=== PATIENT | female | born 1965 | race Caucasian/White ===

== ENCOUNTER 2020-10-04 08:55 | Outpatient (CLI) | payer OTHER, SELFPAY ==
--- NOTE | 2020-10-04 09:01 | ECHO_ITS ---
Patient Info Name: Jes Begum Age: 54 years : 1965 Gender: Female Ht: 63 in Wt: 265 lbs BSA: 2.38 m2 BP: 162 / 98 mmHg Heart Rhythm: Sinus Rhythm Technical Quality: Good Exam Date: 10/04/2020 9:16 AM Exam Location: [facility] Patient Status: Outpatient Admit Date: 10/04/2020 Staff Ordering Physician: Prashant Carlin MD Sales Process Manager: Clyde Bardales RDCS Attending Provider: Prashant Carlin MD Referring Physician: Raegan HENNESSY; Exam Type: CA echo doppler color flow Study Info Indications R01.1 - Cardiac murmur, unspecified Complete two-dimensional, color flow and Doppler transthoracic echocardiogram is performed. Strain analysis performed. History/Risk Factors Murmur; HTN. Summary 1. Complete two-dimensional, color flow and Doppler transthoracic echocardiogram is performed. 2. Left ventricular chamber dimension is normal. 3. Left ventricular systolic function is normal, estimated at 60-65%. 4. There is mildly increased left ventricular wall thickness. 5. The left ventricular diastolic function is grade I diastolic dysfunction. 6. E/e' 13 is mildly elevated. 7. Global longitudinal strain is abnormal at -12.0%. Left Ventricle E/e' 13 is mildly elevated. Global longitudinal strain is abnormal at -12.0%. Left ventricular chamber dimension is normal. Left ventricular systolic function is normal, estimated at 60-65%. There is mildly increased left ventricular wall thickness. The left ventricular diastolic function is grade I diastolic dysfunction. Right Ventricle Right ventricular chamber dimension is normal. Right ventricular systolic function is normal. Left Atria Left atrial chamber dimension is normal. Right Atria Right atrial chamber dimension is normal. Aortic Valve The aortic valve is trileaflet. There is no aortic valve stenosis. There is no aortic valve regurgitation. Pulmonic Valve There is no pulmonic regurgitation. Mitral Valve There is no mitral valve stenosis. There is no mitral valve regurgitation. Tricuspid Valve There is no tricuspid valve regurgitation. Pericardium/Pleural There is no pericardial effusion. Inferior Vena Cava Normal inferior vena cava with >50% collapse upon inspiration consistent with normal right atrial pressure, 5 mmHg. Aorta The aortic root size at the sinus of Valsalva is normal. Left Ventricular Outflow Tract Name Value Normal LVOT 2D LVOT Diameter 2.0 cm LVOT Doppler LVOT Peak Gradient 5 mmHg LVOT Mean Gradient 3 mmHg LVOT VTI 24 cm LVOT VTI/AV VTI Ratio 0.9 LVOT Stroke Volume 77 ml LVOT CO 6.3 l/min LVOT CI 2.6 l/min/m2 Mitral Valve Name Value Normal MV Doppler
== END 2020-10-04 08:56 | disposition home or self-care (01) ==
PROVIDERS: PCP Internal Medicine; Visit Provider Internal Medicine
DX: R01.1 Cardiac murmur, unspecified (principal)
CPT/HCPCS: 93306

== ENCOUNTER 2020-10-05 01:33 | Outpatient (CLI) | payer OTHER, SELFPAY ==
[2020-10-05 19:22] LABS: SARS-CoV-2 RNA PCR Negative
== END 2020-10-05 01:34 | disposition home or self-care (01) ==
LOC: ANHCOVIDDT 01:34
PROVIDERS: PCP Internal Medicine; Visit Provider Internal Medicine Critical Care Medicine
DX: Z01.812 Encounter for preprocedural laboratory examination (principal); Z20.822 Contact with and (suspected) exposure to COVID-19
CPT/HCPCS: C9803; U0003; U0005

== ENCOUNTER 2020-10-07 09:14 | Outpatient (CLI) | payer OTHER, SELFPAY ==
--- NOTE | 2020-11-12 20:25 | WPDSLEEPSTUD ---
Sleep Study Date of Study: 10/07/20 Ordering Provider: Prashant Carlin MD Interpreting Physician: Dinah Gomez MD Sleep Study Type: Polysomnogram Height: 1.6 m Weight: 127.459 kg Body Mass Index: 49.7 Neck Circumference: 50.8 cm [place]: 12 Reason for Sleep Study Heavy snoring, waking at night with panic attacks, sleep apnea diagnosed 5 years ago on a home sleep test treated with nasal CPAP Sleep History Jes Begum is a 54-year-old woman who has a long history of disrupted sleep. She snores heavily which she describes is like a freight train. She described her sleep is being disrupted. In her late 30s she began having anxiety attacks which occurred while sleeping. She Says that she often wakes up around 2 or 3 in the morning. During the day she can fall asleep while sitting upright and watching TV. She generally takes naps in the middle of the day. She had a home sleep test 5 years ago, was diagnosed with sleep apnea and used a CPAP with a nasal mask but did not use it consistently because she was having anxiety attacks at night. She has moved her recliner into her bedroom. She does not awaken at night with heartburn, belching or coughing. She occasionally awakens from sleep feeling short of breath. She rarely has trouble sleeping with a cold. She occasionally wakes up gasping for breath at night. She occasionally has breathing problems at night observed by others. She denies sweating excessively at night. She does not notice her heart pounding or beating irregularly at night. She occasionally falls asleep during the day, occasionally involuntarily however never while driving. She does not fall asleep while exerting physical effort. She does not have loss of muscle tone with strong emotion. She occasionally has difficulties in the daytime due to excessive sleepiness, works as a computer installation engineer. she rarely feels paralyzed on waking or falling asleep. She never has vivid dreamlike scenes upon awakening or falling asleep. She occasionally feels afraid to go to sleep. She rarely has nightmares. She occasionally remembers her dreams. She occasionally has racing thoughts and occasionally has feelings of sadness and depression. She constantly feels anxious. She never has muscular tension and does not notice parts of her body jerking. She rarely kicks at night. She does not have crawling and aching feelings in her legs at night. She occasionally has leg pain at night. She does not have morning jaw pain. She never grinds her teeth during sleep. She rarely is bothered by pain during the day, rarely is awakened by pain at night. She frequently wakes up feeling stiff in the morning with sore achy muscles. She occasionally wakes up with pain in the neck and spine. She has feelings of panic, she has memory problems, depression and headaches. She feels unable to relax. Normal bedtime is 10:00 p.m. taking 1 hour to fall asleep. She typically wakes up 3 times during the night To urinate. She stays awake for 15-20 minutes. She wakes in the morning at 4:00 a.m.. On weekends she goes to bed later, 11:00 p.m. and wakes at 4 in the morning. After waking she usually stays in bed for 2 or 3 hours and usually falls asleep again. She estimates getting between 6 hours and 10 hours of sleep at night. She takes naps in the afternoon or evening. A short nap 10 or 15 minutes may be refreshing. She feels better in the morning compared to other times of day. Habits: tobacco 1 cigarette per day. Caffeine 1 L of diet soda daily. No alcohol or recreational drugs. [facility] Past Medical History Medical History Anxiety with depression Asthma Benign essential hypertension BMI 50.0-59.9, adult Body mass index (BMI) 45.0-49.9, adult Diastolic dysfunction DM type 2 (diabetes mellitus, type 2) Encounter to establish care FHx: colon cancer Follow up GERD (gastroesophageal reflux disease) Heart mu
[2020-11-12 21:36] VITALS: BMI 49.7
== END 2020-10-07 09:15 | disposition home or self-care (01) ==
LOC: ANHCSM 09:16
PROVIDERS: PCP Internal Medicine; Visit Provider Internal Medicine
DX: G47.33 Obstructive sleep apnea (adult) (pediatric) (principal); Z99.89 Dependence on other enabling machines and devices
CPT/HCPCS: 95810

== ENCOUNTER → 2020-12-07 00:40 | Outpatient (CLI) | payer OTHER, SELFPAY ==
[2020-12-07 18:32] LABS: SARS-CoV-2 RNA PCR Negative
== END ==
PROVIDERS: PCP Internal Medicine; Visit Provider Internal Medicine Critical Care Medicine
DX: Z01.812 Encounter for preprocedural laboratory examination (principal); Z20.822 Contact with and (suspected) exposure to COVID-19
CPT/HCPCS: C9803; U0003; U0005

== ENCOUNTER 2020-12-09 09:37 | Outpatient (CLI) | payer OTHER, SELFPAY ==
--- NOTE | 2020-12-21 09:55 | WPDSLEEPSTUD ---
Sleep Study Ordering Provider: Prashant Carlin MD Interpreting Physician: Romel Azevedo MD Sleep Study Type: CPAP Titration Height: 1.6 m Weight: 127.006 kg Body Mass Index: 49.6 Neck Circumference (inches): 17 [place]: 10 Reason for Sleep Study Patient had polysomnographic study done few months ago that documented presence of severe obstructive sleep apnea. Given patient's daytime symptomatology patient was recommended to undergo positive airway pressure titration study. Sleep History history of snoring, poor quality of sleep, daytime sleepiness and comorbid conditions including morbid obesity and type 2 diabetes. [facility] Past Medical History Medical History (Updated 12/10/20 @ 10:37 by Helen Chapman CMA) Abnormal ankle brachial index (JEANNINE) Anxiety with depression Asthma Benign essential hypertension BMI 50.0-59.9, adult Body mass index (BMI) 45.0-49.9, adult Diabetes mellitus type 2, insulin dependent Diastolic dysfunction Encounter for preventive health examination Encounter to establish care FHx: colon cancer Follow up GERD (gastroesophageal reflux disease) Heart murmur Hyperlipidemia Hypersomnolence On fpc drug therapy JO on CPAP Reactive airway disease Tobacco abuse Vitamin D deficiency Surgical History Surgical History Hx of hernia repair Hx of hysterectomy Family History Family History Mother Alzheimer's disease Father Heart disease Diabetes mellitus Grandparent No problems noted. Social History Social History Smoking status: Current every day smoker Tobacco type: cigarettes Second hand tobacco smoke exposure: Yes Additional smoking assessment comments: 3-5 cigarettes daily Alcohol intake: former Substance use: never Medications Home Medications Medication Instructions Recorded Confirmed Type estradiol 1 mg tablet 1 mg PO DAILY 08/23/20 12/14/20 History pen needle, diabetic 32 gauge x #50 ea 10/22/20 12/14/20 Rx 1/4 rosuvastatin 40 mg tablet 40 mg PO DAILY #90 tablet 10/22/20 12/14/20 Rx semaglutide 0.5 mg SUBCUT WEEKLY #1.5 ml 10/22/20 12/14/20 Rx flash glucose scanning reader #1 ea 11/19/20 12/14/20 Rx Vascepa 1 gram capsule 2 g PO BID 90 Days #360 cap NS 12/09/20 12/14/20 Rx albuterol sulfate 90 mcg/actuation 1 puff INHALATION Q4H PRN #6.7 g 12/09/20 12/14/20 Rx aerosol inhaler buspirone 30 mg tablet 30 mg PO TID 90 Days #270 tablet 12/09/20 12/14/20 Rx carvedilol 25 mg tablet 25 mg PO Q12H #180 tablet 12/09/20 12/14/20 Rx fluticasone 500 mcg-salmeterol 50 1 inh INHALATION Q12H #60 ea 12/09/20 12/14/20 Rx mcg/dose blistr powdr for inhalation insulin lispro 200 unit/mL (3 mL) 22 unit SUBCUT .Q meal #6 ml 12/09/20 12/14/20 Rx subcutaneous pen lisinopril 40 mg tablet 40 mg PO DAILY #90 tablet 12/09/20 12/14/20 Rx metformin 1,000 mg tablet 1,000 mg PO BID #180 tablet 12/09/20 12/14/20 Rx pantoprazole 40 mg tablet,delayed 40 mg PO QAM #90 tablet 12/09/20 12/14/20 Rx release zolpidem 10 mg tablet 10 mg PO QHS PRN #1 tablet 12/09/20 12/14/20 Rx insulin glargine 100 unit/mL (3 30 unit SUBCUT BID #15 ml 12/13/20 12/14/20 Rx mL) subcutaneous pen alprazolam 0.25 mg tablet 0.25 mg PO TID PRN #90 tablet 12/17/20 Rx Sleep Procedure Patient underwent overnight polysomnography and the entire study was devoted to positive airway pressure titration. The patient used air fit F 30 fullface mask of medium size. Sleep Architecture total recording time 463 minutes, total sleep time 259 minutes, sleep efficiency 56.1%. Sleep latency 19 minutes, REM latency 76 minutes. Awake after sleep onset 184 minutes, stage N1 10%, N2 84%, N3 0%, stage R 6%. Supine sleep 66.5%, supine REM sleep 2.9%. Respiratory Analysis AASM criteria used. During titration patient had 2 apneas
[2020-12-21 10:19] VITALS: BMI 49.6
== END 2020-12-09 09:38 | disposition home or self-care (01) ==
LOC: ANHCSM 09:37
PROVIDERS: PCP Internal Medicine; Visit Provider Internal Medicine
DX: G47.33 Obstructive sleep apnea (adult) (pediatric) (principal)
CPT/HCPCS: 95811

== ENCOUNTER 2020-12-22 12:27 | Outpatient (CLI) | payer OTHER, SELFPAY ==
--- NOTE | ~2020-12-22 | MM_ITS ---
EXAMINATION: MM screening wade BI w richard HISTORY: Screening mammogram TECHNIQUE: Craniocaudal and mediolateral oblique 3-D tomosynthesis images were obtained and synthetic 2-D images were generated. CAD analysis was submitted and interpreted. COMPARISON: No prior mammogram is available for comparison at this institution. BREAST PARENCHYMAL COMPOSITION: There are scattered areas of fibroglandular density. FINDINGS: RIGHT BREAST: There is no evidence of suspicious mass, calcification, or architectural distortion to suggest malignancy. LEFT BREAST: An asymmetry is present in the posterior third of the slightly outer breast 6 cm from th e nipple on the craniocaudal view. IMPRESSION: 1. Left breast asymmetry which may represent the patient's baseline however no comparison is currentl y available. 2. Comparison with prior mammograms is necessary. BI-RADS Category 0: Incomplete: Needs comparison with prior mammograms. Reviewed, dictated and finalized at location A. IMPRESSION: 1. Left breast asymmetry which may represent the patient's baseline however no comparison is currently available. 2. Comparison with prior mammograms is necessary. BI-RADS Category 0: Incomplete: Needs comparison with prior mammograms.
== END 2020-12-22 12:28 | disposition home or self-care (01) ==
LOC: ANHIMG 12:34
PROVIDERS: PCP Internal Medicine
DX: Z12.31 Encounter for screening mammogram for malignant neoplasm of breast (principal); R92.8 Other abnormal and inconclusive findings on diagnostic imaging of breast
CPT/HCPCS: 77063; 77067

== ENCOUNTER → 2021-02-07 01:12 | Outpatient (CLI) | payer OTHER, SELFPAY ==
[2021-02-07 18:48] LABS: SARS-CoV-2 RNA PCR Negative
== END ==
PROVIDERS: PCP Internal Medicine; Visit Provider Internal Medicine Critical Care Medicine
DX: Z01.812 Encounter for preprocedural laboratory examination (principal); Z20.822 Contact with and (suspected) exposure to COVID-19
CPT/HCPCS: C9803; U0003; U0005

== ENCOUNTER 2021-02-09 08:08 | Outpatient (CLI) | payer OTHER, SELFPAY ==
--- NOTE | 2021-02-25 10:57 | WPDSLEEPSTUD ---
Sleep Study Date of Study: 02/09/21 Ordering Provider: Prashant Carlin MD Interpreting Physician: Dinah Gomez MD Sleep Study Type: BiPAP Titration Height: 1.6 m Weight: 127 kg Body Mass Index: 49.6 Neck Circumference (inches): 17 [place]: 14 Reason for Sleep Study * Oct 07, 2020; Basic sleep study; severe JO AHI 44.9, supine AHI 138.4, lowest saturation 71% * December 09, 2020; CPAP titration with pressures 7 cm to 15 cm attempted; failed CPAP; panic attack at 13 cm and the pressure was decreased to 9 cm, at 13 cm the patient had an AHI of 57 and then when this was increased to 15 cm she could not sleep. She returns for a repeat titration Sleep History Jes Begum is a 55 year old female with a long history of disrupted sleep. She snores heavily which she describes is like a freight train. She describes her sleep as being disrupted. In her late 30s she began having anxiety attacks which occurred while sleeping. She says that she often wakes up around 2 or 3 in the morning. During the day she can fall asleep while sitting upright and watching TV. She generally takes naps in the middle of the day. She had a home sleep test 5 years ago, was diagnosed with sleep apnea and used a CPAP with a nasal mask but did not use it consistently because she was having anxiety attacks at night. She has moved her recliner into her bedroom. She does not awaken at night with heartburn, belching or coughing. She occasionally awakens from sleep feeling short of breath. She rarely has trouble sleeping with a cold. She occasionally wakes up gasping for breath at night. She occasionally has breathing problems at night observed by others. She denies sweating excessively at night. She does not notice her heart pounding or beating irregularly at night. She occasionally falls asleep during the day, occasionally involuntarily however never while driving. She does not fall asleep while exerting physical effort. She does not have loss of muscle tone with strong emotion. She occasionally has difficulties in the daytime due to excessive sleepiness, works as a high school computer science teacher. She rarely feels paralyzed on waking or falling asleep. She never has vivid dreamlike scenes upon awakening or falling asleep. She occasionally feels afraid to go to sleep. She rarely has nightmares. She occasionally remembers her dreams. She occasionally has racing thoughts and occasionally has feelings of sadness and depression. She constantly feels anxious. She never has muscular tension and does not notice parts of her body jerking. She rarely kicks at night. She does not have crawling and aching feelings in her legs at night. She occasionally has leg pain at night. She does not have morning jaw pain. She never grinds her teeth during sleep. She rarely is bothered by pain during the day, rarely is awakened by pain at night. She frequently wakes up feeling stiff in the morning with sore achy muscles. She occasionally wakes up with pain in the neck and spine. She has feelings of panic, she has memory problems, depression and headaches. She feels unable to relax. Normal bedtime is 10:00 p.m. taking 1 hour to fall asleep. She typically wakes up 3 times during the night To urinate. She stays awake for 15-20 minutes. She wakes in the morning at 4:00 a.m.. On weekends she goes to bed later, 11:00 p.m. and wakes at 4 in the morning. After waking she usually stays in bed for 2 or 3 hours and usually falls asleep again. She estimates getting between 6 hours and 10 hours of sleep at night. She takes naps in the afternoon or evening. A short nap 10 or 15 minutes may be refreshing. She feels better in the morning compared to other times of day. Habits: tobacco 1 cigarette per day. Caffeine 1 L of diet soda daily. No alcohol or recreational drugs. [facility] Past Medical History Medical History (Updated 02/25/21 @ 11:46 by Dinah Gomez MD) Abnormal ankle brachial index (JEANNINE)
[2021-02-25 11:13] VITALS: BMI 49.6
== END 2021-02-10 05:53 | disposition home or self-care (01) ==
LOC: ANHCSM 08:08
PROVIDERS: PCP Internal Medicine; Visit Provider Internal Medicine
DX: G47.33 Obstructive sleep apnea (adult) (pediatric) (principal); G25.81 Restless legs syndrome
CPT/HCPCS: 95811

== ENCOUNTER 2021-02-18 14:02 | Outpatient (CLI) | payer OTHER, SELFPAY ==
--- NOTE | ~2021-02-18 | MM_ITS ---
EXAMINATION: MM diagnostic mammo unilat LT HISTORY: Left breast mammographic asymmetry reported on 12/22/2020 screening mammogram TECHNIQUE: Digital ML and cc and spot CC views. CAD analysis was submitted and interpreted. COMPARISON: 12/22/2020 bilateral digital screening mammogram FINDINGS: The focal asymmetry noted in the mid to posterior inner aspect of the outer left breast on craniocaudal view is not confirmed on these supplemental views, compatible with composite shadowing o f overlapping fibroglandular stroma. IMPRESSION: 1. No mammographic evidence malignancy 2. Routine mammographic screening is recommended. BI-RADS Category 1: Negative Reviewed, dictated and finalized at location A.
== END 2021-02-18 14:03 | disposition home or self-care (01) ==
LOC: ANHIMG 14:04
PROVIDERS: PCP Internal Medicine
DX: R92.8 Other abnormal and inconclusive findings on diagnostic imaging of breast (principal)
CPT/HCPCS: 77065

== ENCOUNTER 2021-03-17 09:19 | Outpatient (CLI) | payer OTHER, SELFPAY ==
--- NOTE | ~2021-03-17 | US_ITS ---
EXAMINATION: US art doppler w press LE BI DATE: 03/17/2021 10:59 INDICATION: Bilateral lower leg pain charley horses . TECHNIQUE: Segmental pressures and plethysmographic and Doppler waveforms of the brachial and lower e xtremity arteries were obtained. COMPARISON: None. FINDINGS: Right and left brachial artery pressures of 214 mm Hg and 204 mm Hg, respectively, are concordant (no rmal difference <= 30 mmHg). The right and left high-thigh pressure indices were unable to be obtaine d due to body habitus. The arteries throughout the right lower limb at and above the ankle were unable to be obtained due to inability to occlude the vessels precluding assessment for ankle-brachial index and segmental pressu re gradients. The right great toe-brachial index (TBI) is 0.92 (normal >= 0.6-0.8). Arterial waveform s are biphasic at the right superficial femoral artery and triphasic and remaining arteries of the ri ght lower limb with brisk systolic upstrokes throughout. The arteries throughout the left lower limb at and above the ankle were unable to be obtained due to inability to occlude the vessels precluding assessment for ankle-brachial index and segmental pressur e gradients. The left TBI is 0.86. Arterial waveforms are triphasic with brisk systolic upstrokes thr oughout. IMPRESSION: 1. Normal TBI's bilaterally. No significant occlusive disease. Reviewed, dictated and finalized at location A.
== END 2021-03-17 09:20 | disposition home or self-care (01) ==
PROVIDERS: PCP Internal Medicine; Visit Provider Internal Medicine
DX: R68.89 Other general symptoms and signs (principal)
CPT/HCPCS: 93923

== ENCOUNTER 2022-08-03 14:52 | Outpatient (CLI) | payer OTHER, SELFPAY ==
--- NOTE | ~2022-08-03 | DEXA_ITS ---
Bone Density Report Name: ESRGEI QUAN Age: 56 Sex: Female Ethnicity: White Date of : 1965 Indication: postmenopausal; screening for osteoporosis; height loss; asthma or emphysema; hysterectomy; Referring Provider: BAUDILIO, MARISSA Study: Bone densitometry was performed. Exam Date: August 03, 2022 Accession number: [id number] Bone Density: Region BMD T-score Z-score Classification AP Spine(L1-L4) 1.298 2.3 3.5 Normal Femoral Neck (Left) 0.878 0.3 1.4 Normal Total Hip (Left) 1.077 1.1 1.9 Normal Femoral Neck (Right) 0.864 0.1 1.3 Normal Total Hip (Right) 1.132 1.6 2.4 Normal Total Hip Mean 1.105 1.4 2.2 Normal World Health Organization criteria for BMD impression classify patients as: Normal (T-score at or above -1.0), Osteopenia (T-score between -1.0 and -2.5), or Osteoporosis (T-score at or below -2.5). 10-year Fracture Risk: FRAX not reported because: All T-scores for Spine Total, Hip Total, Femoral Neck at or above -1.0 Clinical Information Provided by Patient: Smokes Has used the following medications: Vitamin D Has the following medical conditions: Asthma or Emphysema, Hysterectomy Patient maximum height was 63 Menopause Age: 44 No regular weight bearing exercise Drinks caffeinated beverages Onset of menses at age 12 Number of children 1 Impression: The patient has normal bone mass. The patient has risk factors, including: smoking. Discussion: BONE DENSITY IS ABOVE THE MINIMUM DESIRABLE LEVEL AT ALL SKELETAL SITES TESTED. This patient?s bone mineral density is above the minimum desirable level (T-score -1.0 or better) at all sites measured. The patient should follow a healthful lifestyle (good nutrition with adequate calcium and vitamin D, and appropriate weight-bearing exercise). Follow-Up: Consider repeating this study in 5 years or sooner if there is some new clinical indication. Reported by: MARTÍN on 08/03/2022 3:32:00 PM. Reviewed, dictated and finalized at location ABarb [place]
--- NOTE | ~2022-08-03 | MM_ITS ---
EXAMINATION: MM screening wade BI w richard HISTORY: Screening mammogram TECHNIQUE: Craniocaudal and mediolateral oblique 3-D tomosynthesis images were obtained and synthetic 2-D images were generated. CAD analysis was submitted and interpreted. COMPARISON: 02/18/2021 diagnostic left mammogram 12/22/2020, 05/08/2019, 02/22/2018, 01/26/2017 bilateral screening mammogram examinations BREAST PARENCHYMAL COMPOSITION: There are scattered areas of fibroglandular density. FINDINGS: There is no evidence of suspicious mass, calcification, or architectural distortion to sugg est malignancy in either breast. There has been no suspicious interval change. IMPRESSION: 1. No mammographic evidence of malignancy. 2. Recommend routine screening mammography in one year. BI-RADS Category 1: Negative Reviewed, dictated and finalized at location A. ERY OFFICE MANAGER
== END 2022-08-03 14:53 | disposition home or self-care (01) ==
PROVIDERS: PCP Internal Medicine; Visit Provider Obstetrics & Gynecology Gynecology
DX: Z12.31 Encounter for screening mammogram for malignant neoplasm of breast (principal); Z78.0 Asymptomatic menopausal state; Z13.820 Encounter for screening for osteoporosis
CPT/HCPCS: 77063; 77067; 77080

== ENCOUNTER 2023-06-13 15:40 | Outpatient (CLI) | payer BC, SELFPAY ==
--- NOTE | ~2023-06-13 | US_ITS ---
EXAMINATION: US renal BI DATE: 06/13/2023 16:32 INDICATION: Elevated creatinine TECHNIQUE: Multiple grayscale and Doppler ultrasound images of the kidneys were obtained. COMPARISON: None. FINDINGS: The right kidney measures 12.3 x 5.5 x 6.0 cm. The left kidney measures 11.0 x 6.3 x 5.6 cm . The kidneys demonstrate normal parenchymal echogenicity. There is no hydronephrosis. The bladder is normal. IMPRESSION: 1. Normal kidneys without hydronephrosis. Reviewed, dictated and finalized at location D.
== END 2023-06-13 15:41 | disposition home or self-care (01) ==
PROVIDERS: PCP Internal Medicine; Visit Provider Internal Medicine
DX: R79.89 Other specified abnormal findings of blood chemistry (principal)
CPT/HCPCS: 76775

== ENCOUNTER 2023-08-14 15:05 | Outpatient (CLI) | payer BC, SELFPAY ==
--- NOTE | ~2023-08-14 | MM_ITS ---
EXAMINATION: MM screening wade BI w richard HISTORY: Screening mammogram TECHNIQUE: Craniocaudal and mediolateral oblique 3-D tomosynthesis images were obtained and synthetic 2-D images were generated. CAD analysis was submitted and interpreted. COMPARISON: 08/03/2022 bilateral screening mammogram 02/18/2021 diagnostic left mammogram, reported negative 12/22/2020 bilateral screening mammogram BREAST PARENCHYMAL COMPOSITION: There are scattered areas of fibroglandular density. FINDINGS: There is no evidence of suspicious mass, calcification, or architectural distortion to sugg est malignancy in either breast. There has been no suspicious interval change. IMPRESSION: 1. No mammographic evidence of malignancy. 2. Recommend routine screening mammography in one year. BI-RADS Category 1: Negative Reviewed, dictated and finalized at location A. ING INSPECTOR
== END 2023-08-14 15:06 | disposition home or self-care (01) ==
PROVIDERS: PCP Internal Medicine; Visit Provider Advanced Practice Midwife
DX: Z12.31 Encounter for screening mammogram for malignant neoplasm of breast (principal)
CPT/HCPCS: 77063; 77067

== ENCOUNTER 2024-07-25 10:48 | Outpatient (CLI) | payer BC, SELFPAY ==
--- NOTE | ~2024-07-25 | US_ITS ---
Renal-Bladder ultrasound Clinical History: Abnormal blood, she findings Technique: Real-time sonographic imaging of the kidneys and urinary bladder was performed. Findings: The right kidney measures 11.4 cm in length and the left kidney measures 10.6 cm. There is no hydronephrosis or renal calculus identified. Renal cortical echogenicity is within normal limits. No renal mass lesion is identified. The urinary bladder is moderately distended at the time of this exam. No intraluminal echoes are iden tified. No abnormal wall thickening is seen. Impression: Unremarkable ultrasound of the kidneys and urinary bladder. Reviewed, dictated and finalized at location M. Impression: Unremarkable ultrasound of the kidneys and urinary bladder.
== END 2024-07-25 10:49 | disposition home or self-care (01) ==
LOC: MICIMG 10:48
PROVIDERS: PCP Internal Medicine; Visit Provider Internal Medicine
DX: R79.89 Other specified abnormal findings of blood chemistry (principal); Z79.899 Other long term (current) drug therapy
CPT/HCPCS: 76775

== ENCOUNTER 2024-11-10 12:23 | Outpatient (CLI) | payer BC, SELFPAY ==
--- NOTE | ~2024-11-10 | MMUS_ITS ---
EXAMINATION: MM diagnostic wade RT w richard, US breast RT limited HISTORY: Follow-up right breast mass TECHNIQUE: Additional 3-D tomosynthesis images of the right breast were performed and synthetic 2-D i mages were generated. CAD analysis was submitted and interpreted. High resolution Limited right breas t ultrasound was performed. COMPARISON: Comparison to multiple prior studies sequentially, with oldest reviewed study dated 05/08. BREAST PARENCHYMAL COMPOSITION: Not dense: There are scattered areas of fibroglandular density. FINDINGS: MAMMOGRAPHIC FINDINGS: There is a small radiolucent mass in the upper outer quadrant of the right breast, anterior third. Th ere are no suspicious calcifications or architectural distortion. ULTRASOUND: Limited right breast ultrasound: At 1:00, 1 cm from the nipple there is a small cluster of microcysts . In the subareolar location the right breast there is a 5 mm cyst. No suspicious masses to suggest m alignancy. IMPRESSION: 1. No evidence for malignancy in the right breast. Benign findings. 2. Routine yearly screening mammogram and regular clinical breast examination are recommended. BI-RADS Category 2: Benign finding(s). Reviewed, dictated and finalized at location B. [facility] IMPRESSION: 1. No evidence for malignancy in the right breast. Benign findings. 2. Routine yearly screening mammogram and regular clinical breast examination a re recommended. BI-RADS Category 2: Benign finding(s).
--- OUTSIDE RECORDS SUMMARY | 2024-11-10 14:48 | XMS_ITS | Encounter Summary ---
Author Organization [employer] Address [address] [place] [address] Care Team Providers Care Art Therapy Certified Supervisor Name Role Phone Garth Graham MD Primary Care Provider +1- [phone] Encounter Details Date Type Department Care Team (Latest Contact Info) Description 06/05/2008 Outpatient Historical [facility] SenRhianna ramsay MD [address] [place] [phone] Other Abnormal Clinical Finding Social History Tobacco Use Types Packs/Day Years Used Date Smoking Tobacco: Never Assessed Comments No Sex and Gender Information Value Date Recorded Sex Assigned at Not on file 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
--- OUTSIDE RECORDS SUMMARY | 2024-11-10 14:48 | XMS_ITS | Encounter Summary ---
Author Organization [facility] Address [address] [place] [address] Care Team Providers Care Sheet Metal Journeyman Name Role Phone Garth Graham MD Primary Care Provider [phone] Reason for Visit * Reason Comments Medication Refill Encounter Details Date Type Department Care Team (Late st Contact Info) Description 01/20/2019 Refill [facility] Internal Medicine - [address] [address] [place] [address] [facility] [address] [place] [address] Social History Tobacco Use Types Packs/Day Years Used Date Smoking Tobacco: Every Day Cigarettes 0.5 25 Smokeless Tobacco: Never Alcohol Use Standard Drinks/Week Comments No 0 (1 standard drink = 0.6 oz pur e alcohol) Comments No Sex and Gender Information Value Date Recorded Sex Assigned at Not on file Legal Sex Female 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
--- OUTSIDE RECORDS SUMMARY | 2024-11-10 14:48 | XMS_ITS | Encounter Summary ---
Author Organization [facility] Address [address] [place] [address] Care Team Providers Care Planning Consultant Name Role Phone Garth Graham MD Primary Care Provider [phone]- [phone] Encounter Details Date Type Department Care Team (Late st Contact Info) Description 01/21/2007 Outpatient Historical [facility] and [address] [place] [address] Rhianna Groves MD [address] [facility] [address] [place] [address] Social History Tobacco Use Types Packs/Day Years Used Date Smoking Tobacco: Never Assessed Comments Unknown Sex and Gender Information Value Date Recorded Sex Assigned at Not on file Legal Sex Female 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
--- OUTSIDE RECORDS SUMMARY | 2024-11-10 14:48 | XMS_ITS | Encounter Summary ---
Author Organization [employer] [facility] Address [address] [place] [address] Care Team Providers Care Conduit Reamer Operator Name Role Phone Garth Graham MD Primary Care Provider [phone]- [phone] Encounter Details Date Type Department Care Team (Late st Contact Info) Description 04/21/2008 Outpatient Historical [facility] Rhianna Garcia MD [address] [facility] [address] [place] [address] Other Screening Mammogram Social History Tobacco Use Types Packs/Day Years Used Date Smoking Tobacco: Never Assessed Comments No Sex and Gender Information Value Date Recorded Sex Assigned at Not on file Legal Sex Female 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 [place], [place] [address] Admit Date: 04/21/2008 JES BEGUM Sex: F Admit Prov: RHIANNA GARCIA Date: 1965 Primary Care Prov: RHIANNA GARCIA CMRN: [id number] Room: [facility]: [id number] IMAGING SERVICES Ordering Prov: RHIANNA GARCIA Accession Number: [id number] Interpretation BILATERAL SCREENING MAMMOGRAMS, 04/21/2008 Reason For Examination: Screening study. Findings: The parenchyma is moderately dense bilaterally. There is no mass, malignant calcification, lymphadenopathy or other sign of malignancy. Summary: No mammographic evidence of malignancy. Assessment BIRADS: 1-Negative Recommendation: Normal interval follow-up Dictated by: KALEN TELLO Electronically signed by: KALEN TELLO 04/22/2008 17:17 Transcribed: 04/22/2008 16:51 DKT Procedure Note Kalen Tello MD - 04/22/[address] [address] Admit Date: 04/21/2008 JES BEGUM Sex: F Admit Prov: RHIANNA GARCIA Date: 1965 Primary Care Prov: RHIANNA GARCIA CMRN: [id number] [id number] [facility] Ordering Prov: RHIANNA GARCIA Interpretation BILATERAL SCREENING MAMMOGRAMS, 04/21/2008 Reason For Examination: Screening study. Findings: The parenchyma is moderately dense bilaterally. There is nomass, malignant calcification, lymphadenopathy or other sign ofmalignancy. Summary: No mammographic evidence of malignancy. Assessment BIRADS: 1-Negative Recommendation: Normal interval follow-up Dictated by: KALEN TELLO Electronically signed by: KALEN TELLO 04/22/2008 17:17 Transcribed: 04/22/2008 16:51 DKT Rhianna Garcia MD MAMMO ORDERABLES Final Result documented in this encounter Visit Diagnoses Diagnosis Other screening mammogram documented in this encounter Care Teams Conduit Reamer Operator Relationship Specialty Start Date End Date Garth Graham MD PCP - General 11/17/09 08/15/20 documented as of this encounter
--- OUTSIDE RECORDS SUMMARY | 2024-11-10 14:48 | XMS_ITS | Encounter Summary ---
Author Organization [facility] Address [address] [place] [address] Care Team Providers Care Health Education Teacher Name Role Phone Garth Graham MD Primary Care Provider [phone]- [phone] Encounter Details Date Type Department Care Team (Late st Contact Info) Description 10/11/2004 Outpatient Historical [facility] [address] [place] [address] Krista Magana MD [address] [facility] [address] [place], [place] [id number] Social History Tobacco Use Types Packs/Day Years Used Date Smoking Tobacco: Never Assessed Comments Unknown Sex and Gender Information Value Date Recorded Sex Assigned at Not on file Legal Sex Female 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
--- OUTSIDE RECORDS SUMMARY | 2024-11-10 14:48 | XMS_ITS | Encounter Summary ---
Author Organization [facility] Address [address] [place] [address] Care Team Providers Care Bail Bond Agent Name Role Phone Garth Graham MD Primary Care Provider [phone]- [phone] Encounter Details Date Type Department Care Team (Late st Contact Info) Description 11/21/2005 Outpatient Historical [facility] Internal Medicine [facility] and [address] [place] [address] Rhianna Groves MD [address] [facility] [address] [place] [address] Social History Tobacco Use Types Packs/Day Years Used Date Smoking Tobacco: Never Assessed Comments Unknown Sex and Gender Information Value Date Recorded Sex Assigned at Not on file 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
--- OUTSIDE RECORDS SUMMARY | 2024-11-10 14:49 | XMS_ITS | Encounter Summary ---
Author Organization [facility] Address [address] [place] [address] Care Team Providers Care Actuarial Mathematician Name Role Phone Garth Graham MD Primary Care Provider [phone] Reason for Visit * Reason Comments Medication Refill Encounter Details Date Type Department Care Team (Late st Contact Info) Description 05/08/2019 Refill [facility] [address] [place] [address] Susan Thorpe MD NO ADDRESS ON FILE Social History Tobacco Use Types Packs/Day Years Used Date Smoking Tobacco: Every Day Cigarettes 0.5 25 Smokeless Tobacco: Never Alcohol Use Standard Drinks/Week Comments No 0 (1 standard drink = 0.6 oz pur e alcohol) Comments No Sex and Gender Information Value Date Recorded Sex Assigned at Not on file Legal Sex Female 4:00 AM RIDE ATTENDANT Gender Identity Not on file Sexual Orientation Not on file Occupation Industry Job Start Date Job End Date Not on file Not on file Not on file Not on file documented as of this encounter Miscellaneous Notes * Telephone Encounter - Jostin Vaz - 05/08/2019 10:24 AM CDT Patient needs to schedule an appointment prior to any more refills. documented in this encounter Plan of Treatment Not on file documented as of this encounter Visit Diagnoses Not on filedocumented in this encounter Care Teams Actuarial Mathematician Relationship Specialty Start Date End Date Garth Graham MD PCP - General 11/17/09 08/15/20 documented as of this encounter
--- OUTSIDE RECORDS SUMMARY | 2024-11-10 14:49 | XMS_ITS | Encounter Summary ---
Author Organization [facility] Address [address] [place] [address] Care Team Providers Care Sql Data Architect Name Role Phone Garth Graham MD Primary Care Provider [phone]- [phone] Encounter Details Date Type Department Care Team (Late st Contact Info) Description 10/30/[address] 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
--- OUTSIDE RECORDS SUMMARY | 2024-11-10 14:49 | XMS_ITS | Encounter Summary ---
Author Organization [facility] Address [address] [place] [address] Care Team Providers Care Lithograph Operator Name Role Phone Garth Graham MD Primary Care Provider [phone]- [phone] Encounter Details Date Type Department Care Team (Late st Contact Info) Description 09/09/2003 Outpatient Historical [facility] Internal Medicine 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
--- OUTSIDE RECORDS SUMMARY | 2024-11-10 14:49 | XMS_ITS | Encounter Summary ---
Author Organization [facility] Address [address] [place] [address] Care Team Providers Care Rotary Rock Drilling Machine Operator Name Role Phone Garth Graham MD Primary Care Provider [phone]- [phone] Encounter Details Date Type Department Care Team (Late st Contact Info) Description 07/17/2000 Outpatient Historical [facility] Internal Medicine [facility] and [address] [place] [address] Rhianna Groves MD [address] [facility] [address] [place] [address] Social History Tobacco Use Types Packs/Day Years Used Date Smoking Tobacco: Never Assessed Comments Unknown Sex and Gender Information Value Date Recorded Sex Assigned at Not on file Legal Sex Female 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
--- OUTSIDE RECORDS SUMMARY | 2024-11-10 14:49 | XMS_ITS | Encounter Summary ---
Author Organization [facility] Address 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
--- OUTSIDE RECORDS SUMMARY | 2024-11-10 14:49 | XMS_ITS | Encounter Summary ---
Author Organization [facility] Address [address] [place] [address] Care Team Providers Care It Field Technician Name Role Phone Garth Graham MD Primary Care Provider [phone]- [phone] Encounter Details Date Type Department Care Team (Late st Contact Info) Description 01/12/[address] [facility] Internal Medicine [facility] and [address] [place] [address] Rhianna Groves MD [address] [facility] [address] [place] [address] Social History Tobacco Use Types Packs/Day Years Used Date Smoking Tobacco: Never Assessed Comments Unknown Sex and Gender Information Value Date Recorded Sex Assigned at Not on file Legal Sex Female 4:00 AM KENO ATTENDANT Gender Identity Not on file Sexual Orientation Not on file documented as of this encounter Plan of Treatment Not on file documented as of this encounter Visit Diagnoses Not on filedocumented in this encounter Care Teams It Field Technician Relationship Specialty Start Date End Date Garth Graham MD PCP - General 11/17/09 08/15/20 documented as of this encounter
--- OUTSIDE RECORDS SUMMARY | 2024-11-10 14:49 | XMS_ITS | Encounter Summary ---
Author Organization [facility] Address [address] [place] [address] Care Team Providers Care Assembler Billiard Table Name Role Phone Garth Graham MD Primary Care Provider [phone] Encounter Details Date Type Department Care Team (Late st Contact Info) Description 05/11/2009 Outpatient Historical [facility] Susan Jonhson MD NO ADDRESS ON FILE Follow-Up Examination, Following Unspecified Surgery Social History Tobacco Use Types Packs/Day Years Used Date Smoking Tobacco: Every Day Cigarettes 0.5 25 Alcohol Use Standard Drinks/Week Comments Yes 0 (1 standard drink = 0.6 oz pur e alcohol) occasional Comments No Sex and Gender Information Value Date Recorded Sex Assigned at Not on file Legal Sex Female 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 OPERATOR Gender Identity Not on file Sexual Orientation Not on file Occupation Industry Job Start Date Job End Date Not on file Not on file Not on file Not on file documented as of this encounter Plan of Treatment Not on file documented as of this encounter Procedures Procedure Name Priority Date/Time Associated Diagnosis Comments MAMMO SCREENING BILAT Routine 05/11/2009 10:07 AM CDT documented in this encounter Results * MAMMO SCREENING BILAT (05/11/2009 10:07 AM CDT) Anatomical Region Laterality Modality Breast Bilateral Other 05/11/2009 10:0 7 AM CDT Narrative 05/13/2009 9:28 AM CDT [facility] [address] [place], [place] [address] Admit Date: 05/11/2009 JES BEGUM Sex: F Admit Prov: SUSAN ARTHUR Date: 1965 Primary Care Prov: ELPIDIO GARCIA CMRN: [id number] [id number] Ordering Prov: SUSAN ARTHUR Accession Number: [id number] Interpretation BILATERAL SCREENING MAMMOGRAM 05/11/2009 HISTORY: Annual screening study. Comparison mammogram 04/21/08. FINDINGS: The parenchyma is moderately dense bilaterally. There is no mass, malignant calcification, lymphadenopathy or other sign of malignancy. IMPRESSION: No mammographic evidence of malignancy. OVERALL ASSESSMENT: BIRADS category 1 - Negative Assessment BIRADS: 1-Negative Recommendation: Normal interval follow-up Dictated by: KARO ZAPATA Electronically signed by: KARO ZAPATA 05/13/2009 09:27 Transcribed: 05/12/2009 09:46 AMK Procedure Note Karo Zapata MD - 05/13/[address] [address] Admit Date: 05/11/2009 JES BEGUM Sex: F Admit Prov: SUSAN ARTHUR Date: 1965 Primary Care Prov: ELPIDIO GARCIA CMRN: [id number] [id number] [facility] Ordering Prov: SUSAN ARTHUR Interpretation BILATERAL SCREENING MAMMOGRAM 05/11/2009 HISTORY: Annual screening study. Comparison mammogram 04/21/08. FINDINGS: The parenchyma is moderately dense bilaterally. There isno mass, malignant calcification, lymphadenopathy or other sign ofmalignancy. IMPRESSION: No mammographic evidence of malignancy. OVERALL ASSESSMENT: BIRADS category 1 - Negative Assessment BIRADS: 1-Negative Recommendation: Normal interval follow-up Dictated by: KARO ZAPATA Electronically signed by: KARO ZAPATA 05/13/2009 09:27 Transcribed: 05/12/2009 09:46 AMK Susan Arthur MD MAMMO ORDERABLES Final Result documented in this encounter Visit Diagnoses Diagnosis Follow-up examination, following unspecified surgery documented in this encounter Care Teams Assembler Billiard Table Relationship Specialty Start Date End Date Garth Graham MD PCP - General 11/17/09 08/15/20 documented as of this encounter
--- OUTSIDE RECORDS SUMMARY | 2024-11-10 14:49 | XMS_ITS | Encounter Summary ---
Author Organization [facility] Address [address] [place] [address] Care Team Providers Care Paper Rewinder Operator Name Role Phone Garth Graham MD Primary Care Provider [phone]- [phone] Encounter Details Date Type Department Care Team (Late st Contact Info) Description 10/07/2003 Outpatient Historical [facility] [address] [place] [address] Krista Magana MD [address] [facility] [address] [place], [place] [id number] Social History Tobacco Use Types Packs/Day Years Used Date Smoking Tobacco: Never Assessed Comments Unknown Sex and Gender Information Value Date Recorded Sex Assigned at Not on file 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
--- OUTSIDE RECORDS SUMMARY | 2024-11-10 14:49 | XMS_ITS | Encounter Summary ---
Author Organization [facility] Address [address] [place] [address] Care Team Providers Care Floral Department Specialist Name Role Phone Garth Graham MD Primary Care Provider [phone]- [phone] Encounter Details Date Type Department Care Team (Late st Contact Info) Description 08/01/2000 Outpatient Historical [facility] Internal Medicine [facility] and [address] [place] [address] Rhianna Groves MD [address] [facility] [address] [place] [address] Social History Tobacco Use Types Packs/Day Years Used Date Smoking Tobacco: Never Assessed Comments Unknown Sex and Gender Information Value Date Recorded Sex Assigned at Not on file Legal Sex Female 4:00 AM HAND HOSE CUTTER Gender Identity Not on file Sexual Orientation Not on file documented as of this encounter Plan of Treatment Not on file documented as of this encounter Visit Diagnoses Not on filedocumented in this encounter Care Teams Floral Department Specialist Relationship Specialty Start Date End Date Garth Graham MD PCP - General 11/17/09 08/15/20 documented as of this encounter
--- OUTSIDE RECORDS SUMMARY | 2024-11-10 14:49 | XMS_ITS | Encounter Summary ---
Author Organization [facility] Address [address] [place] [address] Care Team Providers Care Door Closer Mechanic Name Role Phone Garth Graham MD Primary Care Provider [phone]- [phone] Encounter Details Date Type Department Care Team (Late st Contact Info) Description 04/14/2004 Outpatient Historical [facility] Internal Medicine [facility] and [address] [place] [address] Rhianna Groves MD [address] 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
--- OUTSIDE RECORDS SUMMARY | 2024-11-10 14:49 | XMS_ITS | Encounter Summary ---
Author Organization [facility] Address [address] [place] [address] Care Team Providers Care Stain Remover Name Role Phone Garth Graham MD Primary Care Provider +1- [phone] Encounter Details Date Type Department Care Team (Late st Contact Info) Description 03/31/2003 Outpatient Historical [facility]] Internal Medicine [facility] and [address] [place] [address] [place] [address] [facility] [address] [place] [address] Social History Tobacco Use Types Packs/Day Years Used Date Smoking Tobacco: Never Assessed Comments Unknown Sex and Gender Information Value Date Recorded Sex Assigned at Not on file Legal Sex Female 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
--- OUTSIDE RECORDS SUMMARY | 2024-11-10 14:49 | XMS_ITS | Encounter Summary ---
Author Organization [facility] Address [address] [place] [address] Care Team Providers Care Electrical/Instrument Technician Name Role Phone Garth Graham MD Primary Care Provider +1- [phone] Encounter Details Date Type Department Care Team (Late st Contact Info) Description 05/21/2003 Outpatient Historical [facility] Internal Medicine [facility] and [address] [place] [address] Rhianna Groves MD [address] [facility] [address] [place] [address] Social History Tobacco Use Types Packs/Day Years Used Date Smoking Tobacco: Never Assessed Comments Unknown Sex and Gender Information Value Date Recorded Sex Assigned at Not on file Legal Sex Female 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
--- OUTSIDE RECORDS SUMMARY | 2024-11-10 14:49 | XMS_ITS | Encounter Summary ---
Author Organization [facility] Address [address] [place] [address] Care Team Providers Care Painter Hand Name Role Phone Garth Graham MD Primary Care Provider +1- [phone] Encounter Details Date Type Department Care Team (Late st Contact Info) Description 07/23/2003 Outpatient Historical [facility] Internal Medicine [facility] and [place] [address] [place] [address] [address] [place] [address] [place] [address] [facility] [address] [place] [address] Social History Tobacco Use Types Packs/Day Years Used Date Smoking Tobacco: Never Assessed Comments Unknown Sex and Gender Information Value Date Recorded Sex Assigned at Not on file 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
--- OUTSIDE RECORDS SUMMARY | 2024-11-10 14:49 | XMS_ITS | Encounter Summary ---
Author Organization [employer] Address [address] [place] [address] Care Team Providers Care Dictaphone Typist Name Role Phone Garth Graham MD Primary Care Provider +- [phone] Encounter Details Date Type Department Care Team (Latest Contact Info) Description 12/28/2008 Outpatient Historical [facility] Lisa Arthur MD NO ADDRESS ON FILE Ryan Malik MD [address] [place] [address] [place] [address] Leiomyoma of Uterus, Unspecified Social History Tobacco Use Types Packs/Day Years Used Date Smoking Tobacco: Every Day Cigarettes 0.5 25 Alcohol Use Standard Drinks/Week Comments Not Asked 0 (1 standard drink = 0.6 oz pur e alcohol) Comments No Sex and Gender Information Value Date Recorded Sex Assigned at Not on file 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 Gender Identity Not on file Sexual Orientation Not on file Occupation Industry Job Start Date Job End Date Not on file Not on file Not on file Not on file documented as of this encounter Plan of Treatment Not on file documented as of this encounter Procedures Procedure Name Priority Date/Time Associated Diagnosis Comments PATHOLOGY Routine 01/12/2009 11:12 AM CDT POC , URINE Routine 01/12/2009 6:15 AM CDT HEMOGLOBIN AND HEMATOCRIT Routine 01/07/2009 8:40 AM CDT TYPE AND SCREEN Routine 01/07/2009 8:39 AM CDT documented in this encounter Results * PATHOLOGY (01/12/2009 11:12 AM CDT) FINAL REPORT [facility] [address] [place], [place] [address] Patient: SERGEI BEGUM : 1965 Procedure Date: 01/12/2009 Accession Date: 01/12/2009 Case No: [id number] Ordering Dr: LISA ARTHUR Case types AW, BW, FW, NW and SH are performed [place] [facility] [place] [place] SURGICAL PATHOLOGY & NON-GYNECOLOGIC CYTOPATHOLOGY REPORT DIAGNOSIS UTERUS, CERVIX, HYSTERECTOMY: - NO PATHOLOGIC DIAGNOSIS. UTERUS, ENDOMETRIUM, HYSTERECTOMY: - SECRETORY PATTERN. UTERUS, MYOMETRIUM, HYSTERECTOMY: - ADENOMYOSIS. - SMALL LEIOMYOMA. OVARIES, RIGHT AND LEFT, BILATERAL SALPINGO-OOPHORECT HEAVENLY: - NO PATHOLOGIC DIAGNOSIS. FALLOPIAN TUBES, RIGHT AND LEFT, BILATERAL SALPINGO-OOPHORECT HEAVENLY: - NO PATHOLOGIC DIAGNOSIS. Specimen Description: Uterus, cervix, tubes and ovaries. Operative Procedure: Umbilical hernia repair, total abdominal hysterectomy, bilateral salpingo- oophorectomy. Patient Information/Histor y/Diagnosis: Umbilical hernia, fibroid uterus. Gross: Received in a single container labeled Sergei Begum, uterus, cervix, tubes and ovaries is a 635-g uterus with detached cervix. The body of the uterus is 12.5 x 10.5 x 8.5 cm. The detached cervix is 5.7 x 3 x 2.5 cm. The ectocervix is 3 x 2.5 cm, and the cervical os is 0.3 cm and round. The ectocervix is beltran and smooth. The serosal surface of the uterus is pink-beltran and smooth. The transformation zone is unremarkable. The endocervical canal is 3.8 cm in length and is beltran and trabeculated. The uterus is opened laterally. The endometrial cavity is 4.5 x 6.7 cm and is lined by a beltran velvety endometrium. The endometrium has a uniform thickness of 0.1 cm. The myometrium has an average thickness of 5 cm and is remarkable for adenomyosis. A single intramural leiomyoma is identified. The leiomyoma is 0.5 cm in greatest dimension and has a bulging, whorled, white cut surface. There is no evidence of hemorrhage or necrosis. The fallopian tubes and ovaries are separate from the uterus within the container. The first ovary is 3 x 3.4 x 2 cm. The surface is focally disrupted but is otherwise, pink- beltran and smooth. The attached fimbriated fallopian tube is 4.7 cm in length x 0.8 cm in diameter and has a smooth pink-beltran serosal surface. Near the fimbriated end is a single clear fluid-filled, smooth-lined paratubal cyst. The cyst is 1.5 cm in greatest dimension. Sectioning exhibits an unremarkable ovarian stroma. In the area of disruption is a corpus luteum. The second ovary is 2.5 x 2.5 x 1.5 cm. The surface is pink-beltran and smooth. The attached fimbriated fallopian tube is 5.5 cm in length x 0.9 cm in diameter. The cut surface of the ovary is remarkable for multiple clear fluid-filled, smooth-lined subcortical cysts. The remainder of the ovarian stroma is unremarkable. The largest cyst is 0.9 cm in greatest dimension. Treasury Representative sections are submitted as follows: A1 and A2-cervix; A3 and A4-endomyometrium and serosa; A5-single leiomyoma; A6-first fallopian tube and ovary and paratubal cyst; A7-second fallopian tube and ovary. NIDIA/YUNG 01.13.2009 06:10 am Microscopic: The slides are labeled [id number], Sergei Begum Sections of the uterine cervix show a fairly sharp transformation zone with no significant pathologic alterations. There is no evidence of squamous dysplasia or endocervical glandular atypia. The endometrium has a secretory pattern with no specific abnormalities. The myometrium is remarkable for extensive adenomyosis. It also has the single, small grossly noted leiomyoma. Both ovaries and fallopian tubes are normal. [facility] 01.13.2009 01:20 pm Staging Form: No. ELECTRONIC SIGNATURE FOR URBAN PECK MD- 01/13/09 04:10 pm INTERFACE SYSTEM 01/12/2009 11:1 2 AM CDT us Lisa Arthur MD PATHOLOGY/CYTOLOGY ORDERABLES Final Result Performing Organization Address [facility] de Phone Number INTERFACE SYSTEM Refer to clinic/hospital department * POC , URINE (01/12/2009 6:15 AM CDT) , URINE POC Negative Negative [facility] Urine specimen (specimen) 01/12/2009 6:15 AM CDT 01/12/2009 6:15 AM CDT us Lisa Arthur MD POINT OF CARE TESTING Final R esult Performing Organization Address [facility] de Phone Number INTERFACE SYSTEM Refer to clinic/hospital department [facility] CLIA# [id number] [address] [place] [address] * HEMOGLOBIN AND HEMATOCRIT (01/07/2009 8:40 AM CDT) [facility] HEMOGLOBIN 12.1 11.8 - 14.8 g/dL [facility] HEMATOCRIT 38.5 35.5 - 44.0 % [facility] Blood specimen (specimen) 01/07/2009 8:40 AM CDT 01/07/2009 10:01 AM CDT us Lisa Arthur MD HEMATOLOGY ORDERABLES Final R esult Performing Organization Address [facility] de Phone Number INTERFACE SYSTEM Refer to clinic/hospital department [facility] CLIA# [id number] [address] [place] [address] * TYPE AND SCREEN (01/07/2009 8:39 AM CDT) Pathologist [facility] SPECIMEN LIFE 3 days from OR date [facility] HISTORY CHECK No Historical ABO/Rh [facility] ABO/RH TYPE A Negative [facility] ANTIBODY SCREEN Negative [facility] Blood specimen (specimen) 01/07/2009 8:39 AM CDT us Lisa Arthur MD BLOOD BANK ORDERABLES Edited INTERFACE SYSTEM Refer to clinic/hospital department [facility] CLIA# [id number] [address] [place] [address] documented in this encounter Visit Diagnoses Diagnosis Leiomyoma of uterus, unspecified documented in this encounter Care Teams Dictaphone Typist Relationship Specialty Start Date End Date Garth Graham MD PCP - General 11/17/09 08/15/20 documented as of this encounter
--- OUTSIDE RECORDS SUMMARY | 2024-11-10 14:49 | XMS_ITS | Encounter Summary ---
Author Organization [facility] Address [address] [place] [address] Care Team Providers Care Multiple Coil Winder Name Role Phone Garth Graham MD Primary Care Provider +1- [phone] Encounter Details Date Type Department Care Team (Latest Contact Info) Description 11/04/2008 Outpatient Historical [facility] [place] [address] [facility] [address] [place] [address] Abdominal Pain, Generalized Social History Tobacco Use Types Packs/Day Years Used Date Smoking Tobacco: Never Alcohol Use Standard Drinks/Week Comments Not Asked 0 (1 standard drink = 0.6 oz pur e alcohol) Comments No Sex and Gender Information Value Date Recorded Sex Assigned at Not on file Legal Sex Female 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
--- OUTSIDE RECORDS SUMMARY | 2024-11-10 14:49 | XMS_ITS | Encounter Summary ---
Author Organization [facility] Address [address] [place] [address] Care Team Providers Care Photographic Machine Operator Name Role Phone aGrth Graham MD Primary Care Provider +1- [phone] Encounter Details Date Type Department Care Team (Late st Contact Info) Description 08/03/2005 Outpatient Historical [facility] Internal Medicine [facility] and [address] [place] [address] Rhianna Groves MD [address] [facility] [address] [place] [address] Social History Tobacco Use Types Packs/Day Years Used Date Smoking Tobacco: Never Assessed Comments Unknown Sex and Gender Information Value Date Recorded Sex Assigned at Not on file 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
--- OUTSIDE RECORDS SUMMARY | 2024-11-10 14:49 | XMS_ITS | Encounter Summary ---
Author Organization [facility] Address [address] [place] [address] Care Team Providers Care Rn Rehab Name Role Phone Garth Graham MD Primary Care Provider +1- [phone] Encounter Details Date Type Department Care Team (Late st Contact Info) Description 10/26/2005 Outpatient Historical [facility] Internal Medicine [facility] and [address] [place] [address] Rhianna Groves MD [address] [facility] [address] [place] [address] Social History Tobacco Use Types Packs/Day Years Used Date Smoking Tobacco: Never Assessed Comments Unknown Sex and Gender Information Value Date Recorded Sex Assigned at Not on file 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
--- OUTSIDE RECORDS SUMMARY | 2024-11-10 14:49 | XMS_ITS | Encounter Summary ---
Author Organization [facility] Address [address] [place] [address] Care Team Providers Care Service Counselor Name Role Phone Garth Graham MD Primary Care Provider [phone]- [phone] Encounter Details Date Type Department Care Team (Late st Contact Info) Description 09/26/2000 Outpatient Historical [facility] Internal Medicine [facility] and [address] [place] [address] Rhianna Groves MD [address] [facility] [address] [place] [address] Social History Tobacco Use Types Packs/Day Years Used Date Smoking Tobacco: Never Assessed Comments Unknown Sex and Gender Information Value Date Recorded Sex Assigned at Not on file 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
--- OUTSIDE RECORDS SUMMARY | 2024-11-10 14:49 | XMS_ITS | Encounter Summary ---
Author Organization [facility] Address [address] [place] [address] Care Team Providers Care Dry Transfer Man Name Role Phone Garth Graham MD Primary Care Provider [phone]- [phone] Encounter Details Date Type Department Care Team (Late st Contact Info) Description 08/07/[address] [facility] Internal Medicine 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
--- OUTSIDE RECORDS SUMMARY | 2024-11-10 14:49 | XMS_ITS | Encounter Summary ---
Author Organization [facility] Address [address] [place] [address] Care Team Providers Care Job Superintendent Name Role Phone Garth Graham MD Primary Care Provider +1- [phone] Encounter Details Date Type Department Care Team (Late st Contact Info) Description 11/04/2008 Outpatient Historical [facility] [place] [address] [facility] [address] [place] [address] Abdominal Pain, Generalized Social History Tobacco Use Types Packs/Day Years Used Date Smoking Tobacco: Never Alcohol Use Standard Drinks/Week Comments Not Asked 0 (1 standard drink = 0.6 oz pur e alcohol) Comments No Sex and Gender Information Value Date Recorded Sex Assigned at Not on file 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
--- OUTSIDE RECORDS SUMMARY | 2024-11-10 14:49 | XMS_ITS | Encounter Summary ---
Author Organization [facility] Address [address] [place] [address] Care Team Providers Care Nurse Special Name Role Phone Garth Graham MD Primary Care Provider [phone] Reason for Visit * Reason Comments Medication Refill Encounter Details Date Type Department Care Team (Late st Contact Info) Description 05/27/2019 Refill [facility] [address] [place] [address] Susan Thorpe MD NO ADDRESS ON FILE Social History Tobacco Use Types Packs/Day Years Used Date Smoking Tobacco: Every Day Cigarettes 0.3 25 Smokeless Tobacco: Never Alcohol Use Standard Drinks/Week Comments No 0 (1 standard drink = 0.6 oz pur e alcohol) Comments No Sex and Gender Information Value Date Recorded Sex Assigned at Not on file Legal Sex Female 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 RELATIONS REPRESENTATIVE Gender Identity Not on file Sexual Orientation Not on file Occupation Industry Job Start Date Job End Date Not on file Not on file Not on file Not on file documented as of this encounter Miscellaneous Notes * Telephone Encounter - Keila Croft - 05/27/2019 9:30 AM CDT Past due for WWE, scheduled 06/24/19 Sent e refill for Estradiol #30 documented in this encounter Plan of Treatment Not on file documented as of this encounter Visit Diagnoses Not on filedocumented in this encounter Care Teams Nurse Special Relationship Specialty Start Date End Date aGrth Graham MD PCP - General 11/17/09 08/15/20 documented as of this encounter
--- OUTSIDE RECORDS SUMMARY | 2024-11-10 14:49 | XMS_ITS | Encounter Summary ---
Author Organization [employer] [facility] Address [address] [place] [address] Care Team Providers Care Apparel Stock Checker Name Role Phone Garth Graham MD Primary Care Provider [phone]- [phone] Encounter Details Date Type Department Care Team (Latest Contact Info) Description 11/16/2008 Outpatient Historical [facility] [address] [facility] [address] [place] [address] Hypertrophy of Uterus Social History Tobacco Use Types Packs/Day Years Used Date Smoking Tobacco: Never Alcohol Use Standard Drinks/Week Comments Not Asked 0 (1 standard drink = 0.6 oz pur e alcohol) Comments No Sex and Gender Information Value Date Recorded Sex Assigned at Not on file Legal Sex Female 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
--- OUTSIDE RECORDS SUMMARY | 2024-11-10 14:49 | XMS_ITS | Encounter Summary ---
Author Organization [facility] Address [address] [place] [address] Care Team Providers Care Sheetfed Press Operator Name Role Phone Garth Graham MD Primary Care Provider [phone]- [phone] Encounter Details Date Type Department Care Team (Late st Contact Info) Description 10/29/2000 Outpatient Historical [facility] Internal Medicine [facility] and [address] [place] [address] Rhianna Groves MD [address] [facility] [address] [place] [address] Social History Tobacco Use Types Packs/Day Years Used Date Smoking Tobacco: Never Assessed Comments Unknown Sex and Gender Information Value Date Recorded Sex Assigned at Not on file Legal Sex Female 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
--- OUTSIDE RECORDS SUMMARY | 2024-11-10 14:49 | XMS_ITS | Encounter Summary ---
Author Organization [facility] Address [address] [place] [address] Care Team Providers Care Automobile Accessories Installer Name Role Phone Garth Graham MD Primary Care Provider +1- [phone] Encounter Details Date Type Department Care Team (Late st Contact Info) Description 04/30/[address] [facility] Internal Medicine [facility] and [address] [place] [address] Rhianna Groves MD [address] [facility] [address] [place] [address] Social History Tobacco Use Types Packs/Day Years Used Date Smoking Tobacco: Never Assessed Comments Unknown Sex and Gender Information Value Date Recorded Sex Assigned at Not on file Legal Sex Female 4:00 AM OPTOMETRIST Gender Identity Not on file Sexual Orientation Not on file documented as of this encounter Plan of Treatment Not on file documented as of this encounter Visit Diagnoses Not on filedocumented in this encounter Care Teams Automobile Accessories Installer Relationship Specialty Start Date End Date Garth Graham MD PCP - General 11/17/09 08/15/20 documented as of this encounter
--- OUTSIDE RECORDS SUMMARY | 2024-11-10 14:49 | XMS_ITS | Encounter Summary ---
Author Organization [employer] Address [address] [place] [address] Care Team Providers Care Furnace Utility Operator Name Role Phone Garth Graham MD Primary Care Provider +1- [phone] Encounter Details Date Type Department Care Team (Latest Contact Info) Description 05/22/2009 Outpatient Historical [facility] Rhianna Groves MD [address] [facility] [address] [place] [address] Unspecified Disorders of Calcium Metabolism; Disorders of Calcium Metabolism Social History Tobacco Use Types Packs/Day Years Used Date Smoking Tobacco: Every Day Cigarettes 0.5 25 Alcohol Use Standard Drinks/Week Comments Yes 0 (1 standard drink = 0.6 oz pur e alcohol) occasional Comments No Sex and Gender Information Value Date Recorded Sex Assigned at Not on file Legal Sex Female 4:00 AM CHILDREN'S AUTHOR Gender Identity Not on file Sexual Orientation Not on file Occupation Industry Job Start Date Job End Date Not on file Not on file Not on file Not on file documented as of this encounter Plan of Treatment Not on file documented as of this encounter Visit Diagnoses Diagnosis 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
--- OUTSIDE RECORDS SUMMARY | 2024-11-10 14:49 | XMS_ITS | Encounter Summary ---
Author Organization [facility] Address [address] [place] [address] Care Team Providers Care Photograph Developer Name Role Phone Garth Graham MD Primary Care Provider +1- [phone] Encounter Details Date Type Department Care Team (Late st Contact Info) Description 08/03/2005 Outpatient Historical [facility] Internal Medicine [facility] and [address] [place] [address] Rhianna Groves MD [address] [facility] [address] [place] [address] Social History Tobacco Use Types Packs/Day Years Used Date Smoking Tobacco: Never Assessed Comments Unknown Sex and Gender Information Value Date Recorded Sex Assigned at Not on file Legal Sex Female 4:00 AM PROSTHODONTIST Gender Identity Not on file Sexual Orientation Not on file documented as of this encounter Plan of Treatment Not on file documented as of this encounter Visit Diagnoses Not on filedocumented in this encounter Care Teams Photograph Developer Relationship Specialty Start Date End Date Garth Graham MD PCP - General 11/17/09 08/15/20 documented as of this encounter
--- OUTSIDE RECORDS SUMMARY | 2024-11-10 14:49 | XMS_ITS | Encounter Summary ---
Author Organization [facility] Address [address] [place] [address] Care Team Providers Care Dental Office Receptionist Name Role Phone Garth Graham MD Primary Care Provider +1- [phone] Encounter Details Date Type Department Care Team (Late st Contact Info) Description 04/12/2001 Outpatient Historical [facility] Internal Medicine 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
--- OUTSIDE RECORDS SUMMARY | 2024-11-10 14:49 | XMS_ITS | Encounter Summary ---
Author Organization [facility] Address [address] [place] [address] Care Team Providers Care Sales Activity Manager Name Role Phone Garth Graham MD Primary Care Provider +- [phone] Encounter Details Date Type Department Care Team (Latest Contact Info) Description 02/26/2009 Outpatient Historical [facility] SenRhianna ramsay MD [address] [facility] [address] [place] [address] Routine General Medical Examination at a Health Care Facility Social History Tobacco Use Types Packs/Day Years Used Date Smoking Tobacco: Every Day Cigarettes 0.5 25 Alcohol Use Standard Drinks/Week Comments Yes 0 (1 standard drink = 0.6 oz pur e alcohol) occasional Comments No Sex and Gender Information Value Date Recorded Sex Assigned at Not on file Legal Sex Female 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
--- OUTSIDE RECORDS SUMMARY | 2024-11-10 14:49 | XMS_ITS | Encounter Summary ---
Author Organization [facility] Address [address] [place] [address] Care Team Providers Care Engineering Equipment Operator Name Role Phone Garth Graham MD Primary Care Provider +- [phone] Encounter Details Date Type Department Care Team (Late st Contact Info) Description 11/04/2008 Outpatient Historical [facility], Authorized P NO ADDRESS ON FILE Aaron Artis MD NO ADDRESS ON FILE Social History Tobacco Use Types Packs/Day Years Used Date Smoking Tobacco: Never Alcohol Use Standard Drinks/Week Comments Not Asked 0 (1 standard drink = 0.6 oz pur e alcohol) Comments No Sex and Gender Information Value Date Recorded Sex Assigned at Not on file 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
--- OUTSIDE RECORDS SUMMARY | 2024-11-10 14:49 | XMS_ITS | Encounter Summary ---
Author Organization [facility] Address [address] [place] [address] Care Team Providers Care Operations General Agent Name Role Phone Garth Graham MD Primary Care Provider [phone]- [phone] Encounter Details Date Type Department Care Team (Late st Contact Info) Description 06/23/2003 Outpatient Historical [facility] Davon Elizabeth MD [address] [place] [address] [place] [address] REFLUX ESOPHAGITIS (Primary Dx) Social History Tobacco Use Types Packs/Day Years Used Date Smoking Tobacco: Never Assessed Comments Unknown Sex and Gender Information Value Date Recorded Sex Assigned at Not on file Legal Sex Female 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
--- OUTSIDE RECORDS SUMMARY | 2024-11-10 14:49 | XMS_ITS | Encounter Summary ---
Author Organization [facility] Address 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
--- OUTSIDE RECORDS SUMMARY | 2024-11-10 14:49 | XMS_ITS | Encounter Summary ---
Author Organization [facility] Address [address] [place] [address] Care Team Providers Care Wallpaperer Helper Name Role Phone Garth Graham MD Primary Care Provider +1- [phone] Encounter Details Date Type Department Care Team (Late st Contact Info) Description 07/26/2001 Outpatient Historical [facility] Internal Medicine [facility] and [address] [place] [address] Rhianna Groves MD [address] [facility] [address] [place] [address] Social History Tobacco Use Types Packs/Day Years Used Date Smoking Tobacco: Never Assessed Comments Unknown Sex and Gender Information Value Date Recorded Sex Assigned at Not on file Legal Sex Female 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
--- OUTSIDE RECORDS SUMMARY | 2024-11-10 14:49 | XMS_ITS | Encounter Summary ---
Author Organization [facility] Address [address] [place] [address] Care Team Providers Care District Plant Superintendent Name Role Phone Garth Graham MD Primary Care Provider +1- [phone] Encounter Details Date Type Department Care Team (Late st Contact Info) Description 11/27/2002 Outpatient Historical [facility] Internal Medicine [facility] and [address] [place] [address] Rhianna Groves MD [address] [facility] [address] [place] [address] Social History Tobacco Use Types Packs/Day Years Used Date Smoking Tobacco: Never Assessed Comments Unknown Sex and Gender Information Value Date Recorded Sex Assigned at Not on file Legal Sex Female 4:00 AM COUNTERPERSON Gender Identity Not on file Sexual Orientation Not on file documented as of this encounter Plan of Treatment Not on file documented as of this encounter Visit Diagnoses Not on filedocumented in this encounter Care Teams District Plant Superintendent Relationship Specialty Start Date End Date Garth Graham MD PCP - General 11/17/09 08/15/20 documented as of this encounter
--- OUTSIDE RECORDS SUMMARY | 2024-11-10 14:49 | XMS_ITS | Encounter Summary ---
Author Organization [facility] Address [address] [place] [address] Care Team Providers Care Bundler Seasonal Greenery Name Role Phone Garth Graham MD Primary Care Provider +1- [phone] Encounter Details Date Type Department Care Team (Late st Contact Info) Description 10/21/2004 Outpatient Historical [facility] Internal Medicine [facility] and [address] [place] [address] Rhianna Groves MD [address] [facility] [address] [place] [address] Social History Tobacco Use Types Packs/Day Years Used Date Smoking Tobacco: Never Assessed Comments Unknown Sex and Gender Information Value Date Recorded Sex Assigned at Not on file Legal Sex Female 4:00 AM GREENSKEEPER Gender Identity Not on file Sexual Orientation Not on file documented as of this encounter Plan of Treatment Not on file documented as of this encounter Visit Diagnoses Not on filedocumented in this encounter Care Teams Bundler Seasonal Greenery Relationship Specialty Start Date End Date Garth Graham MD PCP - General 11/17/09 08/15/20 documented as of this encounter
--- OUTSIDE RECORDS SUMMARY | 2024-11-10 14:49 | XMS_ITS | Encounter Summary ---
Author Organization [facility] Address 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
--- OUTSIDE RECORDS SUMMARY | 2024-11-10 14:49 | XMS_ITS | Encounter Summary ---
Author Organization [facility] Address [address] [place] [address] Care Team Providers Care Filament Coil Winder Name Role Phone Garth Graham MD Primary Care Provider +1- [phone] Encounter Details Date Type Department Care Team (Late st Contact Info) Description 06/08/2003 Outpatient Historical [facility] Internal Medicine [facility] and [address] [place] [address] Rhianna Groves MD [address] [facility] [address] [place] [address] Social History Tobacco Use Types Packs/Day Years Used Date Smoking Tobacco: Never Assessed Comments Unknown Sex and Gender Information Value Date Recorded Sex Assigned at Not on file 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
--- OUTSIDE RECORDS SUMMARY | 2024-11-10 14:49 | XMS_ITS | Clinical Summary ---
Author Organization [facility] Address [address] [place] [id number] Care Team Providers Care Corporate Compliance Manager Name Role Phone Unavailable Primary Care Provider Unavailabl e Allergies Active Allergy Reactions Criticality Noted Date Comments Amlodipine Angioedema High 12/08/2016 Animal Dander Itching,Other (See Comments) Low 05/23/2019 Citalopram Unknown Diphenhydramine Hcl Confusion Medium 12/08/2016 Dulaglutide Angioedema High 12/08/2016 Empagliflozin Angioedema High 05/30/2016 Escitalopram Nausea and Vomiting Low 07/19/2009 Insulin Degludec Shortness of Breath/Wheezing,Nausea and Vomiting High 06/24/2019 Iodinated Contrast Media Anaphylaxis,Angioedema High 11/04/2008 Ranitidine Hcl Hallucination High 10/12/2010 Tetracycline Unknown Triamterene-Hydrochlorothiaz id Muscle Pain Low 12/08/2016 Medications FISH OIL 1,000 mg Oral CapIndications:Healt h maintenance examination Take 2,400 mg by mouth daily . Active multivitamin (ONE-A-DAY ESSENTIAL) Oral Tab Take 1 Tab by mouth daily. Active cholecalciferol, vitamin D3, (VITAMIN D3) 5,000 unit Take 1 Tablet (5,000 Units) by mouth daily. 30 Tablet 3 12/09/19 17 Active flash glucose scanning reader (FREESTYLE GUS READER) Misc Freestyle gus reader 1 kit for 1 year.. 1 Each 05/03/20 18 Active flash glucose sensor (FREESTYLE GUS SENSOR) Kit Freestyle gus sensor kit - 3 sensors per month. 3 Kit 3 05/03/20 18 Active ibuprofen (MOTRIN) 800 mg tablet TAKE 1 TABLET BY MOUTH EVERY 6 HOURS NEEDED FOR PAIN 180 Tablet 02/27/20 19 Active ketoconazole (NIZORAL) 2 % CreamIndications:Tin ea pedis of both feet Apply to affected area daily To feet. 60 Gram 3 03/06/20 19 Active pantoprazole (PROTONIX) 40 mg Tablet, Delayed Release (E.C.)Indications:Ep igastric abdominal pain,Abdominal bloating TAKE 1 TABLET(40 MG) BY MOUTH TWICE DAILY 60 Tablet 11 09/18/20 19 Active Additional Information Patient taking differently: 40 mg DAILY, Reported on 10/08/2019 simvastatin (ZOCOR) 40 mg tabletIndications:Hy percholesteremia TAKE 1 TABLET(40 MG) BY MOUTH IN THE EVENING 30 Tablet 6 04/05/20 20 Active pantoprazole sodium (PROTONIX ORAL) Take by mouth. Active icosapent ethyL (Vascepa) 1 gram CapsuleIndications:H ypercholesteremia Take 2 Capsules (2 Grams) by mouth 2 times daily with meals. 120 Capsule 11 04/15/20 20 Active fenofibrate nanocrystallized (TRICOR) 145 mg tabletIndications:Hy percholesteremia,Hyp ertriglyceridemia TAKE 1 TABLET(145 MG) BY MOUTH DAILY 90 Tablet 05/14/20 20 Active fluticasone propion-salmeteroL (Advair Diskus) 500-50 mcg/dose disk inhaler INHALE 1 PUFF BY MOUTH TWICE DAILY 180 Each 3 06/11/20 20 Active busPIRone (BUSPAR) 30 mg TabletIndications:An xiety state TAKE 1 TABLET BY MOUTH THREE TIMES DAILY 270 Tablet 1 06/21/20 20 Active ALPRAZolam (XANAX) 0.25 mg tabletIndications:An xiety state TAKE 1 TABLET(0.25 MG) BY MOUTH TWICE DAILY NEEDED FOR ANXIETY 45 Tablet 08/10/20 20 Active carvediloL (COREG) 25 mg tabletIndications:Be nign essential HTN TAKE 1 TABLET(25 MG) BY MOUTH TWICE DAILY WITH MEALS 180 Tablet 1 08/10/20 20 Active Lantus Solostar U-100 Insulin 100 unit/mL (3 mL) solution for injection 50 units at bedtime SQ. 15 mL 5 08/16/20 20 Active insulin lispro (HumaLOG KwikPen Insulin) 200 unit/mL pen syringe 22 units w/ meals + SSI ( 2 units for every 50 for sugars over 150) max dose is 100 units daily 30 mL 2 08/16/20 20 Active lisinopriL (PRINIVIL) 40 mg tabletIndications:Be nign essential HTN TAKE 1 TABLET(40 MG) BY MOUTH DAILY 90 Tablet 1 08/25/20 20 Active fluconazole (Diflucan) 150 mg tablet Take 1 Tablet (150 mg) by mouth every third day. 2 Tablet 1 10/04/19 21 Active miconazole (CEFERINO,MICOTIN,REMEDY AF) 2 % Cream Apply to affected area 2 times daily. Pea-sized amount. 10/08/19 21 Active metFORMIN (GLUCOPHAGE XR) 500 mg Extended Release 24 hour tablet Take 2 Tablets (1,000 mg) by mouth 2 times daily with meals. --LAST REFILL. MUST ESTABLISH CARE WITH NEW PCP-- 360 Tablet 11/05/19 21 Active VENTOLIN HFA 90 mcg/actuation inhaler INHALE 2 PUFFS BY MOUTH EVERY 6 HOURS NEEDED. 18 Gram 3 11/10/19 21 Active True Metrix Glucose Test Strip Strip USE TO CHECK SUGARS TWICE DAILY must make appt for further refills 200 Strip 03/31/20 21 Active BD Heather 2nd Gen Pen Needle 32 gauge x 5/32 Needle USE FOUR TIMES DAILY DIRECTED 400 Each 1 09/15/20 21 Active estradioL (ESTRACE) 1 mg tablet TAKE 1 TABLET(1 MG) BY MOUTH DAILY 30 Tablet 10/28/19 22 Active Active Problems Problem Noted Date Diagnosed Date Benign essential HTN 12/03/2017 Multiple drug allergies 12/08/2016 Uncontrolled type 2 diabetes mellitus without complication, without long-term current use of insulin 08/21/2016 Depression with anxiety 08/21/2016 Hepatic steatosis 05/23/2016 Allergic to animal dander 05/15/2016 Tobacco use 02/08/2016 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 BMI 45.0-49.9, adult 01/28/2014 Hypertriglyceridemia 10/25/2009 S/P hernia repair 02/24/2009 S/P ARABELLA (total abdominal hysterectomy) 9 Symptomatic states associated with artificial me nopause 02/22/2009 Asthma 07/23/2008 Allergic rhinitis, cause unspecified Anxiety state Depressive disorder, not elsewhere classified Epigastric pain Family history of colon cancer Family history of colonic polyps Fatty liver GERD (gastroesophageal reflux disease) Resolved Problems Problem Noted Date Diagnosed Date Resolved Date Uncontrolled diabetes mellitus 05/30/2016 12/08/2016 Bilateral leg edema 05/15/2016 12/09/19 17 Generalized anxiety disorder 01/22/2013 12/08/2016 Hyperglycemia 10/25/2009 05/24/2016 Immunizations Immunization Administration Dates Next Due (ADACEL/BOOSTRIX)(10 YR UP) TDAP VACCINE, 0.5ML, IM 12/09/2009 Family History Medical History Relation Name Comments Cancer Brother testicular Testicular Cancer Brother Thyroid Disease Brother Diabetes Father Heart Disease Father Heart Failure Father Breast Cancer Maternal Aunt Ovarian Cancer Maternal Aunt Leukemia Maternal Grandmother Alzheimer's Disease Maternal Uncle Colon Cancer Maternal Uncle Alzheimer's Disease Mother Cancer Mother melanoma Melanoma Mother Other Mother Alzheimer's Diabetes Paternal Grandmother Colon Polyps Sister Hypertension Sister Relation Name Status Comments Brother Daughter Alive Father Maternal Aunt Maternal Grandmother Maternal Uncle Mother Paternal Grandmother Sister Social History Tobacco Use Types Packs/Day Years Used Date Smoking Tobacco: Every Day Cigarettes 0.3 25 Smokeless Tobacco: Never Tobacco Cessation:Ready to Q uit: Yes; Counseling Given: No Alcohol Use Standard Drinks/Week Comments No 0 (1 standard drink = 0.6 oz pur e alcohol) Feeling Safe Answer Date Recorded Within the last year, have y ou been afraid of your partner or ex-partner? No 10/04/2020 Within the last year, have y ou been humiliated or emotionally abused in other ways by your partner or ex-partner? No Within the last year, have y ou been kicked, hit, slapped, or otherwise physically hurt by your partner or ex-partner? No 10/04/2020 Within the last year, have y ou been raped or forced to have any kind of sexual activity by your partner or ex-partner? No 10/04/2020 Comments No Sex and Gender Information Value Date Recorded Sex Assigned at Not on file Legal Sex Female 4:00 AM DYE HOUSE SUPERVISOR Gender Identity Not on file Sexual Orientation Not on file Occupation Industry Job Start Date Job End Date Not on file Not on file Not on file Not on file Last Filed Vital Signs Vital Sign Reading Time Taken Comments Blood Pressure 138/72 10/04/2020 1:24 PM DYE HOUSE SUPERVISOR Pulse 100 08/16/2020 11:45 AM DYE HOUSE SUPERVISOR Temperature 36.1 C (97 F) 04/15/2020 11:25 AM CDT Respiratory Rate 15 06/09/2019 9:12 AM CDT Oxygen Saturation 95% 08/16/2020 11: 45 AM DYE HOUSE SUPERVISOR Inhaled Oxygen Concentration - - Weight 127.6 kg (281 lb 3.2 oz) 10/04/2020 1:24 PM DYE HOUSE SUPERVISOR Height 160 cm (5' 3 ) 10/04/2020 1:24 PM DYE HOUSE SUPERVISOR Body Mass Index 49.81 10/04/2020 1:24 PM DYE HOUSE SUPERVISOR Plan of Treatment Health Maintenance Due Date Last Done Comments PNEUMOCOCCAL VACCINE 0-64 YE ARS (1 of 2 - PCV) 1970 HEPATITIS B VACCINES (1 of 3 - 19+ 3-dose series) 12/26/1983 FIT-DNA Q 3 years 2009 FIT/FOBT Q 1 year 2009 Flex Sig/CT Colonography Q 5 years 2009 ZOSTER VACCINE (1 of 2) 2014 DTAP/TDAP/TD VACCINES (2 - T d or Tdap) 12/10/2019 12/09/2009 BREAST CANCER SCREENING 02/18/2022 02/19/20 21, 02/18/2021, 12/22/2020, Additional history exists Pre-Diabetes and Diabetes Screening 03/31/2023 03/31/2020, 10/04/2019, 05/03/2019, Additional history exists INFLUENZA VACCINE (#1) 2024 10/08/2019 COLORECTAL SCREENING 06/09/2024 06/09/2019, 06/09/2019, 06/09/2019, Additional history exists Colorectal Cancer Screening 06/09/2024 Procedures Procedure Name Priority Date/Time Associated Diagnosis Comments MAMMO SCREENING UNILATERAL LEFT Routine 02/18/2021 HEMOGLOBIN A1C Routine 03/31/2020 11:18 AM CDT Uncontrolled type 2 diabetes mellitus with microalbuminuria COLONOSCOPY REPORT 06/09/2019 8: 45 AM CDT from Last 3 Months or Most Recently Relevant to Health Maintenance Results * MAMMO SCREENING UNILATERAL LEFT (02/18/2021) Anatomical Region Laterality Modality Breast Left Other us Susan Thorpe MD MAMMO ORDERABLES Edited Resul t - Final * (ABNORMAL) HEMOGLOBIN A1C (03/31/2020 11:18 AM CDT) HEMOGLOBIN A1C 10.0(H) <5.7 % 03/31/2020 3:[address] [facility] EST. AVG GLUCOSE, A1C 240 mg/dL 03/31/2020 3:[address] [facility] Blood Venipuncture / Unknown 03/31/2020 11:18 AM CDT 03/31/2020 11:[address] [facility] - 03/31/2020 3:18 PM CDT HGB A1C INTERPRETATION NORMAL: <5.7% PRE-DIABETES: 5.7 - 6.4% DIABETES: 6.5% OR GREATER Garth Graham MD CHEMISTRY ORDERABLES Final Result [facility]# [id number] [address] [facility] [address] * COLONOSCOPY REPORT (06/09/2019 8:45 AM CDT) Narrative Procedure Note Adelaide Smith MD - 06/09/2019 8:45 AM CDT [facility] Endoscopy Patient Name: Jes Begum Procedure Date: 06/09/2019 Date of : 1965 Admit Type: Outpatient Attending MD: Adelaide Smith MD Procedure: Colonoscopy Indications: Clinically significant diarrhea of unexplained origin, Family history of colon cancer, Personal history of colonic polyps Providers: Adelaide Smith MD Referring MD: Garth Graham MD Medicines: Monitored Anesthesia Care Complications: No immediate complications. Procedure: Informed consent was obtained for the procedure, including moderate sedation after risks were discussed. Based on the pre-procedure assessment, including review of the patient's medical history, medications, allergies, and review of systems, the patient was deemed to be an appropriate candidate for sedation. A timeout was performed. Continuous ECG monitoring, pulse oximetry, blood pressure monitoring, and direct observation were performed. The Colonoscope was introduced through the anus and advanced to the terminal ileum. The colonoscopy was performed without difficulty. The patient tolerated the procedure well. The quality of the bowel preparation was good. The quality of the bowel preparation was evaluated using the BBPS ([place] Bowel Preparation Scale) with scores of: Right Colon = 3, Transverse Colon = 3 and Left Colon = 3 (entire mucosa seen well with no residual staining, small fragments of stool or opaque liquid). The total BBPS score equals 9. Findings: The perianal and digital rectal examinations were normal. Multiple small-mouthed diverticula were found in the sigmoid colon. Normal mucosa was found in the entire colon. Biopsies for histology were taken with a cold forceps from the ascending colon for evaluation of microscopic colitis. Biopsies for histology were taken with a cold forceps from the sigmoid colon for evaluation of microscopic colitis. Estimated blood loss was minimal. A 5 mm polyp was found in the descending colon. The polyp was sessile. The polyp was removed with a cold snare. Resection and retrieval were complete. Estimated blood loss was minimal. A 2 mm polyp was found in the rectum. The polyp was sessile. The polyp was removed with a cold biopsy forceps. Resection and retrieval were complete. Estimated blood loss was minimal. Internal hemorrhoids were found during retroflexion. The hemorrhoids were Grade I (internal hemorrhoids that do not prolapse). The terminal ileum appeared normal. Impression: - Diverticulosis in the sigmoid colon. - Normal mucosa in the entire examined colon. Biopsied. - One 5 mm polyp in the descending colon, removed with a cold snare. Resected and retrieved. - One 2 mm polyp in the rectum, removed with a cold biopsy forceps. Resected and retrieved. - Internal hemorrhoids. - The examined portion of the ileum was normal. Recommendation: - Patient has a contact number available for emergencies. The signs and symptoms of potential delayed complications were discussed with the patient. Return to normal activities tomorrow. Written discharge instructions were provided to the patient. - Await pathology results. - Repeat colonoscopy in 5 years for surveillance. Procedure Code(s): --- Professional --- 14014, Colonoscopy, flexible; with removal of tumor(s), polyp(s), or other lesion(s) by snare technique 93449, 59, Colonoscopy, flexible; with biopsy, single or multiple CPT copyright 2016 [employer]. All rights reserved. The codes documented in this report are preliminary and upon certified orthotist review may be revised to meet current compliance requirements. Adelaide Smith MD 06/09/2019 8:45:20 AM This report has been signed electronically. Number of Addenda: [id number] [place] [address] Adelaide Smith MD GI PROCEDURE ORDERABLES Final Re sult from Last 3 Months or Most Recently Relevant to Health Maintenance [place] [address] [place] [id number]
--- OUTSIDE RECORDS SUMMARY | 2024-11-10 14:49 | XMS_ITS | Encounter Summary ---
Author Organization [facility] Address [address] [place] [address] Care Team Providers Care Plisse Machine Operator Name Role Phone Garth Graham MD Primary Care Provider [phone] Encounter Details Date Type Department Care Team (Late st Contact Info) Description 01/18/2001 Outpatient Historical [facility] Internal Medicine [facility] and [address] [place] [address] Rhianna Groves MD [address] [facility] [address] [place] [address] Social History Tobacco Use Types Packs/Day Years Used Date Smoking Tobacco: Never Assessed Comments Unknown Sex and Gender Information Value Date Recorded Sex Assigned at Not on file 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
--- OUTSIDE RECORDS SUMMARY | 2024-11-10 14:49 | XMS_ITS | Encounter Summary ---
Author Organization [facility] Address [address] [place] [address] Care Team Providers Care Temperature Logging Operator Name Role Phone Garth Graham MD Primary Care Provider [phone] Encounter Details Date Type Department Care Team (Late st Contact Info) Description 05/15/2001 Outpatient Historical [facility] Internal Medicine [facility] and [address] [place] [address] Rhianna Groves MD [address] [facility] [address] [place] [address] Social History Tobacco Use Types Packs/Day Years Used Date Smoking Tobacco: Never Assessed Comments Unknown Sex and Gender Information Value Date Recorded Sex Assigned at Not on file 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
--- OUTSIDE RECORDS SUMMARY | 2024-11-10 14:49 | XMS_ITS | Encounter Summary ---
Author Organization [facility] Address [address] [place] [address] Care Team Providers Care Check Embosser Name Role Phone Garth Graham MD Primary Care Provider [phone] Encounter Details Date Type Department Care Team (Late st Contact Info) Description 05/15/2003 Outpatient Historical [facility] Internal Medicine [facility] and [address] [place] [address] Rhianna Groves MD [address] [facility] [address] [place] [address] Social History Tobacco Use Types Packs/Day Years Used Date Smoking Tobacco: Never Assessed Comments Unknown Sex and Gender Information Value Date Recorded Sex Assigned at Not on file 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
--- OUTSIDE RECORDS SUMMARY | 2024-11-10 14:50 | XMS_ITS | Encounter Summary ---
Author Organization [facility] Address [address] [place] [address] Care Team Providers Care Battery Parts Assembler Name Role Phone Garth Graham MD Primary Care Provider [phone]- [phone] Encounter Details Date Type Department Care Team (Late st Contact Info) Description 10/02/2002 Outpatient Historical [facility] Internal Medicine [facility] and [address] [place] [address] Rhianna Groves MD [address] [facility] [address] [place] [address] Social History Tobacco Use Types Packs/Day Years Used Date Smoking Tobacco: Never Assessed Comments Unknown Sex and Gender Information Value Date Recorded Sex Assigned at Not on file 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
--- OUTSIDE RECORDS SUMMARY | 2024-11-10 14:50 | XMS_ITS | Clinical Summary ---
Author Organization [facility] Address [address] [place] [address] Care Team Providers Care Pediatric Assistant Name Role Phone Prashant Carlin MD Primary Care Provider [phone] Social History Tobacco Use Types Packs/Day Years Used Date Smoking Tobacco: Never Assessed Comments Unknown Sex and Gender Information Value Date Recorded Sex Assigned at Not on file Legal Sex Female 11:11 AM CDT Gender Identity Not on file Sexual Orientation Not on file Plan of Treatment Health Maintenance Due Date Last Done Comments Cervical Cancer Screening Pa p Smear (Age 30 to 64) Every 3 Years 1965 Colorectal Cancer Screening Colonoscopy (10 Years) 1965 Annual Physical 12/26/1967 Hepatitis C 1982 Cervical Cancer Screening Pa p with HPV Testing (Age 30 to 64) Every 5 Years 1994 Cervical Cancer Screening wi th HPV 1994 Mammogram Screening 2004 Zoster Vaccines (1 of 2) 2014 DTaP, Tdap and Td Vaccines ( 2 - Td or Tdap) 12/10/2019 12/09/2009 COVID-19 Vaccine (2023-2 5 season) 2024 11/08/2021, 03/21/2021, 02/28/2021 Influenza Adult (#1) 2024 Meningococcal B Vaccine Aged Out No l onger eligible based on patient's age to complete this topic Meningococcal Vaccine Aged Out No kamla antony eligible based on patient's age to complete this topic Pneumococcal Vaccine: Pediatrics (0 to 5 Years) and At-Risk Patients (6 to 64 Years) Aged Out No longer eligible b ased on patient's age to complete this topic RSV Immunizations Under 20 Months Aged Out No longer eligible b ased on patient's age to complete this topic Insurance [facility] Care Teams Pediatric Assistant Relationship Specialty Start Date End Date Prashant Carlin MD [address] [place] [id number] PCP - General INTERNAL MEDICINE 05/22/22
--- OUTSIDE RECORDS SUMMARY | 2024-11-10 14:50 | XMS_ITS | Continuity of Care Document ---
Author Organization [facility] Address [address] [place] [address] Phone Care Team Providers Care Technical System Analyst Name Role Phone Wilfrido LOPEZ, Brenda Unavailable Unavailable Allergies, Adverse Reactions, Alerts Substance Reaction Status Criticality tetracycline Active No Information Medications Medication Instructions Dosage Effective Dates (start - stop) Status Comments IRON bid - Active SIMVASTATIN (unknown strength) take 1 tablet (10MG) by oral route every day in the evening Not Available - Active Prevacid 24Hr 15 mg Cap take 1 capsule (15MG) by oral route every day before a meal 15 MG - Active ALPRAZOLAM (unknown strength) take 1 tablet (0.25MG) by ORAL route 3 times every day Not Available - Active ADVAIR DISKUS (unknown strength) inhale 1 puff by INHALATION route 2 times every day morning and eveningapproximately 12 hours apart Not Available - Active ESTRADIOL (unknown strength) take 1 tablet (0.5MG) by ORAL route every day days 1-21 Not Available - Active TRICOR (unknown strength) take 1 tablet (145MG) by ORAL route every day Not Available - Active FISH OIL (unknown strength) Not Available - Active MULTIPLE VITAMINS (unknown strength) take 1 tablet by ORAL route every day with food Not Available - Active buspirone 5 mg tablet take 1 tablet (5MG) by oral route 3 times every day 5 MG - Active Procedures Procedure Date OFFICE/OUTPATIENT VISIT, EST GDX Optic Nerve REFRACTION OFFICE/OUTPATIENT VISIT, EST ECHO EXAM OF EYE, THICKNESS OFFICE/OUTPATIENT VISIT, EST REFRACTION GDX/OCT GDX/OCT Advance Directives Directive Yes / No Effective Date File Name No Information Encounters Encounter Description Practice Location Reason(s) For Visit Diagnoses Date Provider Providers Copied on Encounter OFFICE/OUTPA TIENT VISIT, [facility], [address] [place] [address], [id number], tel:[phone] OPH CONSULT PAULO NGUYỄN eyes doing well, without complaint. (chief complaint) Ocular hypertensionRegu lar astigmatism 3 Anna Brenda. [address], [place], [address], [place]. tel:[phone] Referring Provider: Garth Graham MD, [address], [place], [address]. tel:[phone] OFFICE/OUTPA TIENT VISIT, [facility], [address] [place] [address], [place], [place], [id number], [place] tel:[phone] Oph Consult [facility] Office hard to get eyes focused, -fetl the other day (chief complaint) Ocular hypertensionRegu lar astigmatism 1 Anna Brenda. [address], [address], [place], [address], [place]. [phone] Referring Provider: Garth Graham MD, [address], [place], [address]. tel:[phone] OFFICE/OUTPA TIENT VISIT, [facility], [address] [place] [address], [place], [place], [id number], [place] tel:[phone] Oph Consult [facility] Office hard to get eyes focused, fell the other day (chief complaint) Ocular hypertensionRegu lar astigmatism 0 Anna Brenda. [address], [address], [place], [address], [place]. tel:[phone] Referring Provider: Garth Graham MD, [address], [place], [address]. tel:[phone] [facility], [address], [place], [place], [id number], [place] tel:[phone] Oph Consult [facility] Office No Information 0 Agata Lemus. [address], [place], [place], [id number] , [place]. tel: [phone] Family History Family Member Type Diagnosis Age At Onset Grandmother (p) Problem (finding) Diabetes mellitus Father Problem (finding) Diabetes mellitus Payers Payer name Insurance type Covered democrat ID Authoriza tion(s) [facility] [id number] Social History Type Description Quantity Date Captured Comments Alcohol Use Details Caffeine Use Details Tobacco Use Status No Information Smoking Status Current every day smoker 2012 Sex Female Chief Complaint And Reason For Visit From encounter dated '11/01/2012 10:15'. eyes doing well, without complaint. (chief complaint) Plan Of Treatment Date Type Action Status No Information History Of Present Illness Encounter Date Complaint History Of Prese nt Illness No Information Instructions Date Instruction Tristan Infor thiago - Return in 1 year w kd Anna OD for Complete Exam. Related to Ocular hypertension Ocular hypertension OU - Discussed diagnosis in detail with patient. Will continue to monitor IOP. No treatment required at this time. note thin pachsOCT was done today,Stable Related to Ocular hypertension Regular astigmatism OU - New glasses Rx was given Related to Regular astigmatism Ocular hypertension, OU - IOP better today, but thin Packs.If VF OK- probably OK to do annual next OV Related to Ocular hypertension - Return in 6 months for IOP check, c VF with Brenda Anna OD. Related to Ocular hypertension Regular astigmatism, OU - Recommended pt trying to adjust to current glasses....otherwise additional glasses can be made. Never really worn Related to Regular astigmatism Hyperopic Astigmatis m, OU - Presbyopia- SRX given- consider DVO and comp/near PAL. Related to Hyperopic Astigmatism - Return in 6 months for IOP check, Pachymetry, Related to Hyperopic Astigmatism Ocular Hypertension, OU - pt on Advair and been using a lot lately. Pressures always on high side, but GDX scan today is perfect. No tx at this time- recheck IOP 6 months. note to Santos faxed Related to Ocular Hypertension Assessments Type Assessment Date No Information
--- OUTSIDE RECORDS SUMMARY | 2024-11-10 14:50 | XMS_ITS | Encounter Summary ---
Author Organization [facility] Address [address] [place] [address] Care Team Providers Care Cellular Phone Repairer Name Role Phone Garth Graham MD Primary Care Provider [phone] Encounter Details Date Type Department Care Team (Late st Contact Info) Description 08/15/2002 Outpatient Historical [facility] Internal [facility] and [address] [place] [address] Rhianna Groves MD [address] [facility] [address] [place] [address] Social History Tobacco Use Types Packs/Day Years Used Date Smoking Tobacco: Never Assessed Comments Unknown Sex and Gender Information Value Date Recorded Sex Assigned at Not on file 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
--- OUTSIDE RECORDS SUMMARY | 2024-11-10 14:50 | XMS_ITS | Encounter Summary ---
Author Organization [facility] [place] Address [address] [place] [address] Care Team Providers Care Welding Estimator Name Role Phone Garth Graham MD Primary Care Provider [phone] Encounter Details Date Type Department Care Team (Late st Contact Info) Description 08/28/2001 Outpatient Historical 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
--- OUTSIDE RECORDS SUMMARY | 2024-11-10 14:50 | XMS_ITS | Encounter Summary ---
Author Organization [facility] Address 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
== END 2024-11-10 12:24 | disposition home or self-care (01) ==
LOC: ANHIMG 12:25
PROVIDERS: PCP Internal Medicine; Visit Provider Obstetrics & Gynecology Gynecology
DX: R92.8 Other abnormal and inconclusive findings on diagnostic imaging of breast (principal)
CPT/HCPCS: 76642; 77061; 77065; G0279